=== PATIENT | male | born 1950 | race Caucasian/White ===

== ENCOUNTER → 2024-03-25 | Outpatient (CLI) | payer MEDICARE, BC, SELFPAY ==
--- NOTE | 2024-03-25 16:10 | XR_ITS ---
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 Technique: Multiple real-time grayscale transabdominal sonographic images of the abdomen have been obtained. Findings: Cholelithiasis, small stones Gallbladder wall 0.4 cm Common bile duct enlarged 0.8 cm no definite stones Pancreas poorly visualized but enlarged 5.0 cm Mid and distal aorta not enlarged Liver 15.6 cm multiple liver lesions, the largest in the left lobe 21 mm right lobe 12 mm Normal hepatopedal portal venous flow Patent IVC Right kidney 12.3 x 5.5 x 7.5 cm cortex 2.5 cm Multiple cysts, small Solid mass lower pole right kidney 3.2 x 2.6 x 3.2 cm Left kidney 14.6 x 6.9 x 5.4 cm cortex 2.2 cm Multiple cysts Moderate bilateral renal parenchymal scar formation Spleen 11.3 cm IMPRESSION: Cholelithiasis, small gallstones Thickened gallbladder wall 0.4 cm, enlarged common bile duct 0.8 cm, if biliary colic is a clinical consideration, recommend MRCP follow-up Solid mass lower pole right kidney 3.2 x 2.6 x 3.2 cm, recommend MRI abdomen kidneys follow-up, pre and postcontrast to assess this renal mass
[2024-03-25 16:15] LABS: Basophils # (Auto) 0.1 Thou/mm3 (0.0-0.2); Basophils % (Auto) 1 % (0-2.5); Eosinophils # (Auto) 0.3 Thou/mm3 (0.0-0.5); Eosinophils % (Auto) 3 % (0-10); Hematocrit 51.5 % (41.0-53.0); Hemoglobin 17.2 g/dL (13.5-16.0); Immature Granulocytes % (Auto) 1 % (0-0); Immature Granulocytes Auto 0.09 Thou/mm3 (0.00-0.00); Lymphocytes # (Auto) 1.7 Thou/mm3 (1.0-4.8); Lymphocytes % (Auto) 20 % (10-50); Mean Corpuscular HGB Conc 33.4 g/dl (31.0-37.0); Mean Corpuscular Hemoglobin 30.9 pg (25.0-35.0); Mean Corpuscular Volume 93 fL (80-100); Monocytes # (Auto) 0.4 Thou/mm3 (0.0-0.8); Monocytes % (Auto) 5 % (0-12); Neutrophils # (Auto) 5.9 Thou/mm3 (1.8-7.7); Neutrophils % (Auto) 70 % (37-80); Nucleated Red Blood Cell % 0 /100 WBC (0); Platelet Count 247 Thou/mm3 (140-440); RDW Standard Deviation 46.4 fL (35.1-43.9); Red Blood Count 5.57 Miln/mm3 (4.50-5.90); White Blood Count 8.4 Thou/mm3 (3.8-10.6)
[2024-03-25 16:29] LABS: Carbon Dioxide 25.5 mMol/L (20.0-31.0); Chloride 107 mMol/L (98-107); Potassium 4.9 mMol/L (3.4-5.1); Sodium 140 mMol/L (136-145)
[2024-03-25 16:30] LABS: Alanine Aminotransferase 65 U/L (10-49); Albumin, Serum 4.8 gm/dL (3.4-4.8); Albumin/Globulin Ratio 2.2 (1.2-2.2); Alkaline Phosphatase 109 U/L (46-116); Amylase 45 U/L (30-118); Anion Gap 8 (7-16); Aspartate Amino Transferase 34 U/L (0-34); BUN/Creatinine Ratio 22 Ratio (12-20); Bilirubin,Total 0.9 mg/dL (0.3-1.2); Blood Urea Nitrogen 26 mg/dL (9-23); Calcium 10.4 mg/dL (8.3-10.6); Calcium (Corrected) 10.4 mg/dL (8.5-10.1); Creatinine (Component) 1.2 mg/dL (0.6-1.3); Globulin 2.2 gm/dL (2.3-3.5); Glucose 124 mg/dL (74-106); Lipase 35 U/L (12-53); Osmolality,Calculated 285 (275-295); eGFR > 60 See Note
== END | disposition home or self-care (01) ==
LOC: CDIM 15:46 → COPL 15:46
PROVIDERS: PCP Family Medicine; Referring Provider Physician Assistant; Visit Provider Radiology Diagnostic Radiology
DX: K80.20 Calculus of gallbladder without cholecystitis without obstruction (principal); K82.8 Other specified diseases of gallbladder; K83.8 Other specified diseases of biliary tract; N28.89 Other specified disorders of kidney and ureter; R10.9 Unspecified abdominal pain
CPT/HCPCS: 36415; 76700; 80053; 82150; 83690; 85025

== ENCOUNTER → 2024-04-28 | Outpatient (CLI) | payer MEDICARE, BC, SELFPAY ==
--- NOTE | 2024-04-28 16:03 | XR_ITS ---
MRI abdomen, without contrast. MRCP Date and time of exam: April 28, 2024 at 1634 hours Comparison August 06, 2023 INDICATIONS: Right-sided abdominal pain beginning one month ago, abdomen sonogram March 25, 2024 cholelithiasis, gallbladder wall 0.4 cm Technique: Multiple axial and coronal images of the abdomen have been obtained with the Siemens 1.5T MRI scanner. Images obtained included T1 weighted transverse images, T2-weighted transverse images, T2-weighted transverse images fat-suppressed, T2 weighted haste fat suppressed transverse images, T1 weighted images, in and out of phase images, T2-weighted coronal images, breath hold, T2 weighted haze coronal images as well as T2 weighted coronal thick slab images, MRCP. Findings: Benign liver cysts, no intrahepatic biliary tract dilatation Multiple small gallstones Enlarged common bile duct 8 mm Numerous common hepatic common bile duct stones greater than 10 in number ranging in size from 2 to 3 mm No pancreatic edema or dilated pancreatic duct Spleen is not enlarged Solid mass lower pole right kidney 3.2 cm IMPRESSION: Cholelithiasis, negative for cholecystitis Enlarged common bile duct 8 mm with numerous small common hepatic common bile duct stone
== END | disposition home or self-care (01) ==
PROVIDERS: PCP Physician Assistant; Referring Provider Internal Medicine Gastroenterology; Visit Provider Internal Medicine Gastroenterology
DX: K80.20 Calculus of gallbladder without cholecystitis without obstruction (principal); K83.8 Other specified diseases of biliary tract
CPT/HCPCS: S8037; 74181

== ENCOUNTER 2024-04-29 20:28 | Inpatient (IN) | payer MEDICARE, BC, SELFPAY ==
[2024-04-29 20:34] VITALS: BP 114/73; PULSE 118; RESP 20; TEMP 36.6; O2SAT 98
--- NOTE | 2024-04-29 20:56 | EDNOTE_ITS ---
ED Abdominal Pain RME/HPI General Chief Complaint: Abdominal Pain Stated complaint: ABD PAIN Time seen by provider: 04/29/24 20:55 Arrival date/time: 04/29/24 20:28 Limitations: no limitations RME / HPI RME / HPI narrative: DR. THOMAS MAIN ED EVALUATION: 74-year-old male with history of high cholesterol, hypertension and gallstones presenting to the emergency department with acute onset of right upper quadrant pain that started at noon after he was eating pancakes. The patient states the pain has been constant and is a dull ache. There is no radiation. The patient states he had pain like this before and has seen Dr. Aguilera for this. He had an MRI yesterday as an outpatient and labs test today per Dr. Aguilera's office. He does not know what the plan is but he suspects that his gallbladder may have to be taken out. Positive nausea. No vomiting, no fever. Related Data Home Medications ?Medication ?Instructions ?Recorded ?Confirmed nortriptyline 50 mg capsule 2 tab PO HS 30 days #15 caps 07/07/17 08/01/23 losartan 100 mg tablet 100 mg PO QDAY 08/01/23 08/01/23 pregabalin 150 mg capsule 150 mg PO QDAY 08/01/23 08/01/23 rosuvastatin 10 mg tablet 10 mg PO QDAY 08/01/23 08/01/23 Allergies Allergy/AdvReac Type Severity Reaction Status Date / Time No Known Allergies Allergy Verified 08/01/23 08:18 Review of Systems Review of Systems Systems Reviewed: All systems reviewed, normal except as documented Narrative Review of Systems: GEN: No fever, no chills, no weight loss EYES: No discharge, no visual changes, no pain HEENT: No ear pain, no congestion, no sore throat PULM: No shortness of breath, no cough, no congestion CV: No chest pain, no dyspnea on exertion, no palpitations GI: + nausea, no vomiting, no diarrhea, + right upper quadrant pain, no constipation : No frequency, no urgency and no dysuria MUSC/SKEL: No joint pain, no back pain SKIN: No rash PSYCH: No hallucinations, no depression HEME/LYMPH: No easy bleeding or bruising tendencies NEURO: No weakness, no headache Past Medical History Past Medical History NEUROLOGIC: Positive Neurological Disorders, Peripheral Neuropathy and Migraine CARDIAC: Positive Cardiac Disorders, Coronary Artery Disease, Congenital Heart Disease and Hypertension RESPIRATORY: Positive Sleep Apnea GASTROINTESTINAL: Positive Gastrointestinal Disorders, Diverticulitis and Diverticulosis GENITOURINARY: 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 He is slightly diaphoretic in the face but otherwise not on his arms and legs. No mottling on the skin. General Limitations: Present no limitations General appearance: Present alert and in distress Head Head exam: Present atraumatic Eye Eye exam: Present normal appearance, EOMI and scleral icterus (No jaundice.) ENT ENT exam: Present normal exam, normal oropharynx and mucous membranes dry Neck Neck exam: Present normal inspection, full ROM and trachea midline Chest Chest inspection: Present normal inspection and symmetric chest wall rise Respiratory Respiratory exam: Present normal lung sounds bilaterally; Absent respiratory distress, wheezes or accessory muscle use Cardiovascular Cardiovascular exam: Present regular rate, tachycardia and normal heart sounds Abdominal Exam Abdominal exam: Present soft, guarding and normal bowel sounds; Absent distention, rebound, rigidity, Martínez's sign, Rovsing's sign, ascites or mass Extremities Exam Extremities exam: Present normal inspection and full ROM Back Exam Back exam: Present normal inspection and full ROM Neurological Exam Neurological exam: Present alert and oriented X3; Absent motor sensory deficit Psychiatric Psychiatric exam: Present normal affect and normal mood Skin Skin exam: Present warm, dry, intact and normal color Course Course Course Narrative: 0101: Sepsis alert initiated. Orders made at this time are congruent with ED Adult Sepsis Order List. Re-evaluation is to be completed. NS IVF was started at 2311. 0213: Sepsis reassessment performed consisting of lab review, vitals, physical exam including auscultation of heart, lungs, and visual evaluation of capillary refills, mucosal membranes and extremities. Patient is not hypotensive at this time. Patient rates his pain 3 out of 10 in severity. Dilaudid orderd. Attempted to call Dr. Aguilera 2-3x without any success. See [facility] for further consultations. 0600: Care signed out to Dr. Gao (emergency physician). Past medical, surgical, social and family history reviewed. Vitals and home medications reviewed. Results and treatment plan discussed. They will assume the care of the patient at this time and will follow the patient, pending callback from Dr. Curry and/or Dr. Aguilera. Quality Measures Possible source: GI tract/intra-abdominal Blood cultures ordered: yes Antibiotic ordered: Yes Pertinent labs: 04/29/24 04/30/24 23:10 00:00 Lactic Acid 1.1 mMol/L (0.4-2.0) Procalcitonin 4.07 H ng/ml (0.0-0.49) sepsis Orders Category Date Time Status COVID-19 Screening Questionnaire NOW Care 04/30/24 02:21 Active COVID-19 Screening Questionnaire NOW Care 04/30/24 02:[address] Registrar STAT Care 04/30/24 01:01 Active Continuous Pulse Oximetry STAT Care 04/30/24 01:01 Completed Decision to Admit X1 Care 04/30/24 02:21 Completed Decision to Admit X1 Care 04/30/24 02:25 Active EKG (ED ONLY) *Do not use* NOW Care 04/29/24 22:39 Completed Insert IV STAT Care 04/29/24 21:43 Active NPO STAT Care 04/29/24 21:43 Active NPO STAT Care 04/30/24 01:01 Active Strict Intake and Output Routine Care 04/30/24 01:01 Ordered EKG (ED Only) Stat Exams 04/29/24 22:38 Ordered XR chest 1V portable Stat Exams 04/30/24 00:09 Taken Blood Culture (Lab) Stat Lab 04/30/24 02:13 Received CBC Stat Lab 04/29/24 23:10 Completed Comprehensive Metabolic Panel Stat Lab 04/29/24 23:10 Completed LDH (Lactate Dehydrogenase) Stat Lab 04/30/24 00:00 Completed Lactate (Lactic Acid) Stat Lab 04/29/24 23:10 Completed Lipase Stat Lab 04/29/24 23:10 Completed Lipid Panel Stat Lab 04/30/24 00:00 Completed Magnesium Stat Lab 04/29/24 23:10 Completed Magnesium Stat Lab 04/30/24 00:00 Completed Partial Thromboplastin Time Stat Lab 04/30/24 01:01 Completed Phosphorous Stat Lab 04/30/24 00:00 Completed Procalcitonin Stat Lab 04/29/24 23:10 Completed Prothrombin Time with INR Stat Lab 04/30/24 01:01 Completed Troponin I Stat Lab 04/29/24 23:10 Completed Urinalysis Stat Lab 04/29/24 21:43 Ordered Urine Culture Stat Lab 04/30/24 01:01 Ordered HYDROmorphone INJ [Dilaudid Inj] Med 04/29/24 22:37 Discontinued 0.05 mg IVP X1 ONE HYDROmorphone INJ [Dilaudid Inj] Med 04/29/24 22:37 Discontinued 0.5 mg IVP X1 ONE HYDROmorphone INJ [Dilaudid Inj] Med 04/30/24 01:40 Discontinued 0.5 mg IVP X1 ONE Morphine Inj Med 04/29/24 21:48 Discontinued 4 mg IVP X1 ONE Morphine Inj [Morphine Sulf Inj] Med 04/29/24 21:42 Discontinued 4 mg IM X1 ONE Ondansetron Inj [Zofran Inj] Med 04/29/24 22:37 Discontinued 4 mg IV X1 ONE Ondansetron Inj [Zofran Inj] Med 04/29/24 22:38 Discontinued 4 mg IV X1 ONE Piper/Tazo 3.375 gm [Zosyn] Med 04/30/24 01:01 Discontinued 3.375 gm in 50 ml IV X1 Sodium Chloride 0.9% 1000 ml [Ns] 1,000 ml Med 04/29/24 22:37 Discontinued IV 999 mls/hr Sodium Chloride 0.9% 1000 ml [Ns] 2,466 ml Med 04/30/24 01:01 Discontinued IV 2,466 mls/hr Oxygen Delivery NOW RT 04/30/24 01:01 Active Reevaluation(s) Reevaluation #1: Patient states his pain is slightly improved compared to when he came in. Time: 22:35 Vital Signs Vital signs: Vital Signs Temperature 98 F 04/29/24 20:34 Pulse Rate 118 H 04/29/24 20:34 Respiratory Rate 20 04/29/24 20:34 Blood Pressure 114/73 04/29/24 20:34 Pulse Oximetry (%) 98 04/29/24 20:34 Oxygen Delivery Method Nasal Cannula 04/29/24 20:34 Oxygen Flow Rate 6 04/29/24 20:34 Procedures -ED Smoking Cessation Time Spent Discussing Smoking Cessation w/Patient (min): 3 Patient Acknowledges Need for Cessation: Yes Additional Comments: The patient was counseled as to the multiple risks to their health from continued use of tobacco products. It was explained that continuing to smoke may lead to multiple short and residential negative health consequences, including but not limited to mouth/esophageal/lung cancer, COPD, and heart disease. The patient states they understand these risks, and also understand the options and resources available to them to help them stop smoking. Nicotine replacement therapy, local hotlines, and local resources were discussed as viable options for helping them stop their tobacco use. The total time spent counseling the patient regarding tobacco cessation was 3 minutes. Abdominal Pain MDM MDM Narrative MDM Narrative:: 74-year-old male presenting with history of gallstones and acute pain. Heart rate is 118. Dr. Aguilera is made aware of the patient immediately upon patient arrival even before labs are sent and likely has common bile duct stone based on presentation and history. Recommends the patient get admitted and he will do ERCP. Labs are pending. Suspect different diagnosis to include, bile duct stone, acute cholecystitis, cholangitis, worsening of his underlying biliary disease, sepsis, hepatitis, nonspecific presentation of acute coronary artery disease. STEMI. Pneumonia. Sepsis alert is called secondary to elevated procalcitonin and lactate. Zosyn is ordered. Pancreatitis with evidence of gallstones -0200/0300/0400: Dr. Aguilera paged pending. 0449: Discussed with Dr. Curry regarding the hospitalist's request. States he will talk to Dr. Aguilera at 0630 and will call the next oncoming provider, Dr. Gao, regarding his discussion with Willy. I, Marizol Lopez, am scribing for and in the presence of Dr. Thomas. Patient data External records reviewed:: [facility] previous records (Reviewed colonoscopy note by Dr. Curry dated 08/06/23; Reviewed outpatient MRI from yesterday, see below.) Clinical information provided by:: patient Social determinants that could affect healthcare access:: other (specify) (C urrent smoker.) Patient has the following chronic illnesses:: High cholesterol, hypertension and gallstones. How is presenting disease/condition affected by chronic disease/condition?: exacerbated by Evaluation data The following diagnostics were reviewed and interpreted by me:: lab results, radiology exam(s) and EKG tracing(s) Lab and/or radiology exams considered but not ordered:: none Interpretation Summary: WBC count is elevated at 13.6, Total Bilirubin is elevated at 3.1, LFTs are elevated, Lipase is elevated at 3274, Lactic acid is normal, Procalcitonin is elevated at 4.07, according to my interpretation. CXR shows mild cardiomegaly, increased vascular markings bilaterally, but no pleural effusions, bony abnormalities, no CHF or infiltrates according to my interpretation. EKG done at 0544, sinus tachycardia, rate of 102, low voltage, nonspecific ST-T wave changes, no ST elevations or depressions, QTc: 387, no STEMI, according to my interpretation. ----- [facility] Report Signed Patient: CEFERINO PRESTON. Record#: [id number] Birthdate: 1950 Age/Sex: 74 / M Location: [facility] Attending Dr: Sushil Mcqueen MD Ordering Physician: Sushil Tyler MD Date of Service: 04/28/24 Procedure(s): MR MRCP Accession Number(s): [id number] cc: Sabino Silver MD; Amanda Griffith PA-C; Sushil Tyler MD~ MRI abdomen, without contrast. MRCP Date and time of exam: April 28, 2024 at 1634 hours Comparison August 06, 2023 INDICATIONS: Right-sided abdominal pain beginning one month ago, abdomen sonogram March 25, 2024 cholelithiasis, gallbladder wall 0.4 cm Technique: Multiple axial and coronal images of the abdomen have been obtained with the Siemens 1.5T MRI scanner. Images obtained included T1 weighted transverse images, T2-weighted transverse images, T2-weighted transverse images fat-suppressed, T2 weighted haste fat suppressed transverse images, T1 weighted images, in and out of phase images, T2-weighted coronal images, breath hold, T2 weighted haze coronal images as well as T2 weighted coronal thick slab images, MRCP. Findings: Benign liver cysts, no intrahepatic biliary tract dilatation Multiple small gallstones Enlarged common bile duct 8 mm Numerous common hepatic common bile duct stones greater than 10 in number ranging in size from 2 to 3 mm No pancreatic edema or dilated pancreatic duct Spleen is not enlarged Solid mass lower pole right kidney 3.2 cm IMPRESSION: Cholelithiasis, negative for cholecystitis Enlarged common bile duct 8 mm with numerous small common hepatic common bile duct stone Dictated By: Sabino Silver MD Signed By: <Electronically signed by Sabino Silver MD in OV> 04/28/24 1707 Medications / Prescriptions Medications or Prescriptions considered but not ordered:: none Medication administrations:: Medication Administration History Discontinued Medications Hydromorphone HCl (Hydromorphone Inj 2 Mg/Ml Vial) 0.5 mg IVP X1 ONE Stop: 04/29/24 22:38 Last Admin: 04/29/24 22:45 Dose: 0.5 mg Documented By: JOHNNIE Hydromorphone HCl (Hydromorphone Inj 2 Mg/Ml Vial) 0.05 mg IVP X1 ONE Stop: 04/29/24 22:38 Last Admin: 04/29/24 23:05 Dose: Not Given Documented By: JOHNNIE Non-Admin Reason: Cancelled by Provider Hydromorphone HCl (Hydromorphone Inj 2 Mg/Ml Vial) 0.5 mg IVP X1 ONE Stop: 04/30/24 01:41 Last Admin: 04/30/24 02:39 Dose: 0.5 mg Documented By: Sodium Chloride (Ns) 1,000 mls @ 999 mls/hr IV .Q1H1M ONE Stop: 04/29/24 23:37 Last Infusion: 04/30/24 01:43 Dose: Infused Documented By: Admin: 04/29/24 23:11 Dose: 999 mls/hr Documented By: Sodium Chloride (Ns) 2,466 mls @ 2,466 mls/hr 30 ml/kg infuse over 60 min (2466 ml) IV .Q1H ONE Stop: 04/30/24 02:00 Last Infusion: 04/30/24 02:43 Dose: Infused Documented By: Admin: 04/30/24 01:43 Dose: 2,466 mls/hr Documented By: Piperacillin/Tazobactam/Dextrose (Zosyn) 3.375 gm in 50 mls @ 100 mls/hr IV X1 ONE Stop: 04/30/24 01:30 Last Infusion: 04/30/24 05:28 Dose: Infused Documented By: Admin: 04/30/24 01:41 Dose: 100 mls/hr Documented By: Morphine Sulfate (Morphine Sulf Inj 4 Mg/Ml Vial) 4 mg IM X1 ONE Stop: 04/29/24 21:43 Last Admin: 04/29/24 22:44 Dose: Not Given Documented By: Non-Admin Reason: Duplicate Medication on eMAR Morphine Sulfate (Morphine Sulf Inj 10 Mg/Ml Vial) 4 mg IVP X1 ONE Stop: 04/29/24 21:49 Last Admin: 04/29/24 21:52 Dose: 4 mg Documented By: Ondansetron HCl (Ondansetron Inj 2 Mg/Ml Inj 2 Ml) 4 mg IV X1 ONE; Protocol Stop: 04/29/24 22:38 Last Admin: 04/29/24 22:46 Dose: 4 mg Documented By: Ondansetron HCl (Ondansetron Inj 2 Mg/Ml Inj 2 Ml) 4 mg IV X1 ONE; Protocol Stop: 04/29/24 22:39 see above Consultations Consultation(s) initiated? (list below): Yes Consultation #1 (Physician, Specialty, Details): Discussed case with [Dr. Aguilera] from [GI] regarding [consultation]. Discussed patients ED course, exam findings, labs, and radiology results. Agrees to do an ERCP tomorrow. Requests to admit the patient, Consultation #2 (Physician, Specialty, Details): Discussed case with [Dr. Curry] from [GI] regarding [consultation]. Discussed patients ED course, exam findings, labs, and radiology results. States that Dr. Aguilera will not be able to perform an ERCP due to the patient's lab results. Recommends admitting the patient and he will inform Dr. Aguilera of the patient's condition in the morning. Time: 02:15 Consultation #3 (Physician, Specialty, Details): Discussed case with [the resident physician, and the attending Dr. Mayer, Hospitalist service regarding admission. Discussed patients ED course, exam findings, labs, and radiology results. The Hospitalist is requesting to attempt to contact Dr. Aguilera again to see if new labs and ERCP are possible or to get the general surgeon on-board to perform a cholecystectomy. Time: 02:23 Diagnosis Differential diagnosis abdominal pain: other (bile duct stone, acute cholecystitis, cholangitis, worsening of his underlying biliary disease, sepsis, hepatitis, nonspecific presentation of acute coronary artery disease. STEMI. Pneumonia.) Most likely diagnosis given after review of the tests above:: see below Admission Indicated Admission indicated?: not indicated Admission Request Was there a request for admission?: No Disposition Plan Disposition Plan: other (specify) (Signed out to Dr. Gao at [address] Curry and/or Dr. Aguilera.) Critical Care Time Critical Care Time Critical Care Time: Yes Total Critical Care Time (min.): 35 Attestation: The high probability of sudden, clinically significant deterioration in the patient?s condition required the highest level of my preparedness to intervene urgently. The services I provided to this patient were to treat and/or prevent clinically significant deterioration. Services included the following: chart data review, reviewing nursing notes and/or old charts, documentation time, payroll consultant collaboration regarding findings and treatment options, medication orders and management, direct patient care, vital sign assessments and ordering, interpreting and reviewing diagnostic studies and lab tests. Aggregate critical care time includes only time during which I was engaged in work directly related to the patient?s care, as described above, whether at bedside or elsewhere in the Emergency Department. It did not include time spent performing other reported procedures or the services of residents, students, nurses or physician assistants. Discharge Plan Plan Disposition Comment: Stable at signout Patient condition on transfer: Stable Prescriptions/Referrals Prescriptions/Med Rec: No Action nortriptyline 50 mg capsule 2 tab PO HS 30 Days Qty: 15 Patient Comments: losartan 100 mg tablet 100 mg PO QDAY Patient Comments: TAKE 1 TABLET BY MOUTH EVERY DAY rosuvastatin 10 mg tablet 10 mg PO QDAY Patient Comments: TAKE 1 TABLET BY MOUTH EVERY DAY FOR 30 DAYS pregabalin 150 mg capsule 150 mg PO QDAY Patient Comments: TAKE 1 CAPSULE BY MOUTH EVERY DAY FOR 30 DAYS Problem List Clinical Impression: Biliary calculi, common bile duct, Acute gallstone pancreatitis Patient/Caregiver Discharge Instructions Print Language: Luxembourger Stand Alone Forms: Janice Award Info., Patient Portal Info Letter
[2024-04-29 21:04] VITALS: BMI 42.3
[2024-04-29] MEDS: MORPHINE SULF INJ 10 MG/ML VIAL 4 MG IVP (21:52)
[2024-04-29 22:34] VITALS: BP 114/73; PULSE 107; RESP 18; TEMP 36.6; O2SAT 94
[2024-04-29] MEDS: HYDROmorphone INJ 2 MG/ML VIAL 0.5 MG IVP (22:45)
[2024-04-29] MEDS: ONDANSETRON INJ 2 MG/ML INJ 2 ML 4 MG IV (22:46)
[2024-04-29] MEDS: SODIUM CHLORIDE 0.9% 1000 ML 1,000 ML 999 ML IV (23:11)
[2024-04-29 23:55] LABS: Basophils % (Auto) 0 % (0-2.5); Eosinophils # (Auto) 0.1 Thou/mm3 (0.0-0.5); Eosinophils % (Auto) 0 % (0-10); Hematocrit 46.2 % (41.0-53.0); Hemoglobin 15.8 g/dL (13.5-16.0); Immature Granulocytes % (Auto) 1 % (0-0); Immature Granulocytes Auto 0.07 Thou/mm3 (0.00-0.00); Lymphocytes # (Auto) 0.4 Thou/mm3 (1.0-4.8); Lymphocytes % (Auto) 3 % (10-50); Mean Corpuscular HGB Conc 34.2 g/dl (31.0-37.0); Mean Corpuscular Volume 91 fL (80-100); Monocytes % (Auto) 7 % (0-12); Neutrophils % (Auto) 89 % (37-80); Nucleated Red Blood Cell % 0 /100 WBC (0); Platelet Count 241 Thou/mm3 (140-440); RDW Standard Deviation 46.9 fL (35.1-43.9); Red Blood Count 5.09 Miln/mm3 (4.50-5.90); White Blood Count 13.6 Thou/mm3 (3.8-10.6)
[2024-04-30] VITALS (8 sets, daily range): BP systolic 114–161; BP diastolic 74–97; PULSE 69–86; RESP 16–20; TEMP 36.3–36.7; O2SAT 92–99; BMI 43.2
--- NOTE | 2024-04-30 00:09 | XR_ITS ---
Examination: AP chest single view TECHNIQUE: AP portable upright chest single view Exam date and time: April 30, 2024 12:16 AM Comparison May 29, 2016 INDICATIONS: Right upper abdominal pain today hypertension history FINDINGS: Normal heart size Mild accentuation basilar bronchovascular markings No lobar pneumonia or pulmonary edema IMPRESSION: Basilar bronchitis pattern
[2024-04-30 00:20] LABS: Lactate (Lactic Acid) 1.1 mMol/L (0.4-2.0)
[2024-04-30 00:34] LABS: Alanine Aminotransferase 370 U/L (10-49); Albumin, Serum 4.4 gm/dL (3.4-4.8); Alkaline Phosphatase 370 U/L (46-116); Anion Gap 11 (7-16); Aspartate Amino Transferase 291 U/L (0-34); BUN/Creatinine Ratio 14 Ratio (12-20); Bilirubin,Total 3.1 mg/dL (0.3-1.2); Blood Urea Nitrogen 14 mg/dL (9-23); Calcium 9.3 mg/dL (8.3-10.6); Calcium (Corrected) 9.3 mg/dL (8.5-10.1); Chloride 105 mMol/L (98-107); Estimated Creatinine Clearance 100.1 mL/min (>60); Globulin 2.2 gm/dL (2.3-3.5); Glucose 136 mg/dL (74-106); Lipase 3274 U/L (12-53); Magnesium 1.7 mg/dL (1.6-2.6); Osmolality,Calculated 276 (275-295); Potassium 3.7 mMol/L (3.4-5.1); Procalcitonin 4.07 ng/ml (0.0-0.49); Sodium 137 mMol/L (136-145); Total Protein 6.6 gm/dL (5.7-8.2); Troponin I < 0.020 ng/mL (0.0-0.045); eGFR > 60 See Note
[2024-04-30 01:30] LABS: INR 1.2 (0.9-1.3); Partial Thromboplastin Time 27.2 Seconds (22.0-36.0); Prothrombin Time 12.7 Seconds (9.0-12.2)
[2024-04-30 01:33] LABS: Cardiac Risk Estimate 2.5 RATIO (4.0-6.7); Cholesterol 109 mg/dL (132-200); HDL Cholesterol 44 mg/dL (40-60); LDH (Lactate Dehydrogenase) 360 U/L (120-246); LDL Cholesterol,Calculated 50 mg/dL (0-130); Magnesium 1.7 mg/dL (1.6-2.6); Phosphorous 2.5 mg/dL (2.4-5.1); Triglycerides 76 mg/dL (30-150)
[2024-04-30] MEDS: PIPER/TAZO 3.375 GM 3.375 GM/50 ML BAG IV (01:41)
[2024-04-30] MEDS: SODIUM CHLORIDE 0.9% 1000 ML 2,466 ML 2466 ML IV (01:43)
[2024-04-30] MEDS: HYDROmorphone INJ 2 MG/ML VIAL 0.5 MG IVP (02:39)
--- NOTE | 2024-04-30 04:16 | EVENTNT_ITS ---
Documentation for date of: 04/30/24 Event Note Event Note: The patient is a 74-year-old male with a past medical history of hypertension, hyperlipidemia, gallstones, colovesicular fistula and right renal mass status post cryoablation who presented to the ED on 04/29/2024 with right upper quadrant pain started about 10 a.m and has been constant since with no radiation, associated nausea but no vomiting. The patient was seen by Dr. Aguilera as an outpatient yesterday and had an MRI. In the ED, GI Dr. Aguilera was consulted who recommended for the patient to be admitted with IV fluid hydration and plan for an ERCP in the morning. However repeat labs showed elevated lipase of 3274. Hospitalist team was called for admission of patient for management of gallstone pancreatitis. We recommended for GI ERCP technical marketing consultant Dr Aguilera to be contacted again following new labs and if accepts, the patient will be admitted. Otherwise, general surgery consultation will be obtained, but if no procedures will be done here, then recommend for the patient to be transferred out to another facility. Case was discussed with attending physician, Dr Moreno Abel MD PGY-1 Face to face evaluation was performed by me. I have personally seen and examined the patient. I discussed the assessment and plan with the entire medicine team. I reviewed available medical records, imaging studies, laboratory results. I agree with the above subjective data, objective findings, assessment and plan e xcept as corrected by me or noted below Discussed with Dr Thomas ED attending. Expressed my concerns regrading possibility of adverse outcome if intervention is delayed or not done. We are not accepting the patient as of now. GI Dr. Cardona to be contacted again after repeat results and events. Patient became septic with elevated lactate level, started on broad spectrum Abxs Zosyn. If urgent ERCP not able to be done here then General Surgery to be consulted for surgical exploration (this is usually rarely needed but maybe required for large or impacted stones). If no surgery to be offered/needed by surgery then patient I believe should be transferred to another facility where ERCP and/or at least PTC (Percutaneous transhepatic cholangiography) by IR can be performed. Ultimately will need gall bladder to come out as well per surgery. Recommend to trend liver enzymes, lactate, provide with appropriate fluid resuscitation. continue broad spectrum antibiotics meanwhile
--- NOTE | 2024-04-30 08:23 | PD.EDABDPN ---
ED Abdominal Pain RME/HPI General Chief Complaint: Abdominal Pain Stated complaint: ABD PAIN Time seen by provider: 04/29/24 20:55 Arrival date/time: 04/29/24 20:28 Limitations: no limitations RME / HPI RME / HPI narrative: DR. HERNANDEZ MAIN ED EVALUATION: 74-year-old male with history of high cholesterol, hypertension and gallstones presenting to the emergency department with acute onset of right upper quadrant pain that started at noon after he was eating pancakes. The patient states the pain has been constant and is a dull ache. There is no radiation. The patient states he had pain like this before and has seen Dr. Aguilera for this. He had an MRI yesterday as an outpatient and labs test today per Dr. Aguilera's office. He does not know what the plan is but he suspects that his gallbladder may have to be taken out. Positive nausea. No vomiting, no fever. [address] Aguilera (GI hot room attendant). We discussed the patient's case in detail. He said the patient should be admitted to the hospitalist and he will see him today. I discussed with Dr. Aguilera the fact that the hospitalist was reluctant to admit the patient overnight. He asked that the hospitalist call him and speak with him directly. I then called and spoke with Dr. Escalona (hospitalist on duty). I let him know that Dr. Aguilera wanted him to call and he said he will call right now and let me know about the conversation and whether they can admit the patient. [address] Lewis for Dr. Escalona. We discussed patient's case in detail. She kindly agreed to admit the patient. Related Data Home Medications ?Medication ?Instructions ?Recorded ?Confirmed nortriptyline 50 mg capsule 2 tab PO HS 30 days #15 caps 07/07/17 08/01/23 losartan 100 mg tablet 100 mg PO QDAY 08/01/23 08/01/23 pregabalin 150 mg capsule 150 mg PO QDAY 08/01/23 08/01/23 rosuvastatin 10 mg tablet 10 mg PO QDAY 08/01/23 08/01/23 Allergies Allergy/AdvReac Type Severity Reaction Status Date / Time No Known Allergies Allergy Verified 08/01/23 08:18 ED Exam General Limitations: Present no limitations General appearance: Present alert and in distress Course Course Course Narrative: 0101: Sepsis alert initiated. Orders made at this time are congruent with ED Adult Sepsis Order List. Re-evaluation is to be completed. NS IVF was started at 2311. 0213: Sepsis reassessment performed consisting of lab review, vitals, physical exam including auscultation of heart, lungs, and visual evaluation of capillary refills, mucosal membranes and extremities. Patient is not hypotensive at this time. Patient rates his pain 3 out of 10 in severity. Dipesh orderd. Attempted to call Dr. Aguilera 2-3x without any success. See [facility] for further consultations. 0600: Care signed out to Dr. Gao (emergency physician). Past medical, surgical, social and family history reviewed. Vitals and home medications reviewed. Results and treatment plan discussed. They will assume the care of the patient at this time and will follow the patient, pending callback from Dr. Curry and/or Dr. Aguilera. Orders Category Date Time Status COVID-19 Screening Questionnaire NOW Care 04/30/24 02:21 Active COVID-19 Screening Questionnaire NOW Care 04/30/24 02:25 Active Fruit And Vegetable Classer STAT Care 04/30/24 01:01 Active Continuous Pulse Oximetry STAT Care 04/30/24 01:01 Completed Decision to Admit X1 Care 04/30/24 02:21 Completed Decision to Admit X1 Care 04/30/24 02:25 Completed EKG (ED ONLY) *Do not use* NOW Care 04/29/24 22:39 Completed Insert IV STAT Care 04/29/24 21:43 Active NPO STAT Care 04/29/24 21:43 Active NPO STAT Care 04/30/24 01:01 Active Strict Intake and Output Routine Care 04/30/24 01:01 Ordered EKG (ED Only) Stat Exams 04/29/24 22:38 Ordered XR chest 1V portable Stat Exams 04/30/24 00:09 Taken Blood Culture (Lab) Stat Lab 04/30/24 02:13 Received CBC Stat Lab 04/29/24 23:10 Completed Comprehensive Metabolic Panel Stat Lab 04/29/24 23:10 Completed LDH (Lactate Dehydrogenase) Stat Lab 04/30/24 00:00 Completed Lactate (Lactic Acid) Stat Lab 04/29/24 23:10 Completed Lipase Stat Lab 04/29/24 23:10 Completed Lipid Panel Stat Lab 04/30/24 00:00 Completed Magnesium Stat Lab 04/29/24 23:10 Completed Magnesium Stat Lab 04/30/24 00:00 Completed Partial Thromboplastin Time Stat Lab 04/30/24 01:01 Completed Phosphorous Stat Lab 04/30/24 00:00 Completed Procalcitonin Stat Lab 04/29/24 23:10 Completed Procalcitonin Stat Lab 04/30/24 08:29 Ordered Prothrombin Time with INR Stat Lab 04/30/24 01:01 Completed Troponin I Stat Lab 04/29/24 23:10 Completed Urinalysis Stat Lab 04/29/24 21:43 Ordered Urine Culture Stat Lab 04/30/24 01:01 Ordered HYDROmorphone INJ [Dilaudid Inj] Med 04/29/24 22:37 Discontinued 0.05 mg IVP X1 ONE HYDROmorphone INJ [Dilaudid Inj] Med 04/29/24 22:37 Discontinued 0.5 mg IVP X1 ONE HYDROmorphone INJ [Dilaudid Inj] Med 04/30/24 01:40 Discontinued 0.5 mg IVP X1 ONE Morphine Inj Med 04/29/24 21:48 Discontinued 4 mg IVP X1 ONE Morphine Inj [Morphine Sulf Inj] Med 04/29/24 21:42 Discontinued 4 mg IM X1 ONE Ondansetron Inj [Zofran Inj] Med 04/29/24 22:37 Discontinued 4 mg IV X1 ONE Ondansetron Inj [Zofran Inj] Med 04/29/24 22:38 Discontinued 4 mg IV X1 ONE Piper/Tazo 3.375 gm [Zosyn] Med 04/30/24 01:01 Discontinued 3.375 gm in 50 ml IV X1 Sodium Chloride 0.9% 1000 ml [Ns] 1,000 ml Med 04/29/24 22:37 Discontinued IV 999 mls/hr Sodium Chloride 0.9% 1000 ml [Ns] 2,466 ml Med 04/30/24 01:01 Discontinued IV 2,466 mls/hr Oxygen Delivery NOW RT 04/30/24 01:01 Active Vital Signs Vital signs: Vital Signs Temperature 98 F 04/29/24 20:34 Pulse Rate 118 H 04/29/24 20:34 Respiratory Rate 20 04/29/24 20:34 Blood Pressure 114/73 04/29/24 20:34 Pulse Oximetry (%) 98 04/29/24 20:34 Oxygen Delivery Method Nasal Cannula 04/29/24 20:34 Oxygen Flow Rate 6 04/29/24 20:34 Abdominal Pain MDM Medications / Prescriptions Medication administrations:: Medication Administration History Discontinued Medications Hydromorphone HCl (Hydromorphone Inj 2 Mg/Ml Vial) 0.5 mg IVP X1 ONE Stop: 04/29/24 22:38 Last Admin: 04/29/24 22:45 Dose: 0.5 mg Documented By: Hydromorphone HCl (Hydromorphone Inj 2 Mg/Ml Vial) 0.05 mg IVP X1 ONE Stop: 04/29/24 22:38 Last Admin: 04/29/24 23:05 Dose: Not Given Documented By: Non-Admin Reason: Cancelled by Provider Hydromorphone HCl (Hydromorphone Inj 2 Mg/Ml Vial) 0.5 mg IVP X1 ONE Stop: 04/30/24 01:41 Last Admin: 04/30/24 02:39 Dose: 0.5 mg Documented By: Sodium Chloride (Ns) 1,000 mls @ 999 mls/hr IV .Q1H1M ONE Stop: 04/29/24 23:37 Last Infusion: 04/30/24 01:43 Dose: Infused Documented By: Admin: 04/29/24 23:11 Dose: 999 mls/hr Documented By: Sodium Chloride (Ns) 2,466 mls @ 2,466 mls/hr 30 ml/kg infuse over 60 min (2466 ml) IV .Q1H ONE Stop: 04/30/24 02:00 Last Infusion: 04/30/24 02:43 Dose: Infused Documented By: Admin: 04/30/24 01:43 Dose: 2,466 mls/hr Documented By: Piperacillin/Tazobactam/Dextrose (Zosyn) 3.375 gm in 50 mls @ 100 mls/hr IV X1 ONE Stop: 04/30/24 01:30 Last Infusion: 04/30/24 05:28 Dose: Infused Documented By: Admin: 04/30/24 01:41 Dose: 100 mls/hr Documented By: Morphine Sulfate (Morphine Sulf Inj 4 Mg/Ml Vial) 4 mg IM X1 ONE Stop: 04/29/24 21:43 Last Admin: 04/29/24 22:44 Dose: Not Given Documented By: Non-Admin Reason: Duplicate Medication on eMAR Morphine Sulfate (Morphine Sulf Inj 10 Mg/Ml Vial) 4 mg IVP X1 ONE Stop: 04/29/24 21:49 Last Admin: 04/29/24 21:52 Dose: 4 mg Documented By: RH Ondansetron HCl (Ondansetron Inj 2 Mg/Ml Inj 2 Ml) 4 mg IV X1 ONE; Protocol Stop: 04/29/24 22:38 Last Admin: 04/29/24 22:46 Dose: 4 mg Documented By: RH Ondansetron HCl (Ondansetron Inj 2 Mg/Ml Inj 2 Ml) 4 mg IV X1 ONE; Protocol Stop: 04/29/24 22:39 Discharge Plan Plan Disposition Comment: Stable at signout Patient condition on transfer: Stable Prescriptions/Referrals Prescriptions/Med Rec: No Action nortriptyline 50 mg capsule 2 tab PO HS 30 Days Qty: 15 Patient Comments: losartan 100 mg tablet 100 mg PO QDAY Patient Comments: TAKE 1 TABLET BY MOUTH EVERY DAY rosuvastatin 10 mg tablet 10 mg PO QDAY Patient Comments: TAKE 1 TABLET BY MOUTH EVERY DAY FOR 30 DAYS pregabalin 150 mg capsule 150 mg PO QDAY Patient Comments: TAKE 1 CAPSULE BY MOUTH EVERY DAY FOR 30 DAYS Problem List Clinical Impression: Biliary calculi, common bile duct, Acute gallstone pancreatitis Patient/Caregiver Discharge Instructions Print Language: Hebrew Stand Alone Forms: Janice Award Info., Patient Portal Info Letter
--- NOTE | 2024-04-30 08:25 | PC.NURSE ---
In to assess pt. Pt is resting quietly at this time with c/o RUQ abd pain. Pt denies any other symptoms at this time. Orders received and initiated. Call light is within reach. Pt reminded of need for urine sample, states he has no urge at this time. Plan of care ongoing.
--- NOTE | 2024-04-30 08:59 | PC.CC ---
The patient is a 74 year-old male who was BIBA from home for abdominal pain. LEILAWOlivia made csoj-ao-pein contact with patient. ASW introduced self, role, and reason for visit. Patient appeared alert and oriented to self, location, and situation. Patient was pleasant and engaged in initial assessment. Patient confirmed information on demographics and reports to living at home with his , Diana Gambino . Per patient, prior to being admitted to this hospital he was able to complete his own ADLs but uses two hiking sticks to assist with ambulation. The patient uses a C-PAP machine at home at night to sleep. While here at the hospital he has been on 5 liters of oxygen but does not use oxygen at home. Patient receives primary care with Dr. Coles and uses [facility] for prescription medication. Per the patient, his medical decision maker should something happen to him would be his Diana. Upon discharge the patient plans to return home. business services director to follow-up with any discharge needs.
[2024-04-30] MEDS: PIPER/TAZO INJ 3.375 GM in SODIUM CHLORIDE 0.9% (P) 50 ML IV ×3 (09:22→21:23)
[2024-04-30] MEDS: SODIUM CHLORIDE 0.9% 1000 ML 1,000 ML 150 ML IV ×2 (09:27→18:10)
[2024-04-30] MEDS: traMADol HCL 50 MG TABLET 100 MG PO (09:29)
[2024-04-30] MEDS: PANTOPRAZOLE INJ 40 MG VIAL IVP (09:32)
[2024-04-30 10:01] LABS: Procalcitonin 11.96 ng/ml (0.0-0.49)
--- NOTE | 2024-04-30 10:48 | EDNOTE_ITS ---
Emergency Room Addendum Addendum Narrative: 0600: Care assumed from Dr. Thomas, the previous shift emergency physician. Past medical, surgical, social and family history reviewed. Vitals and home medications reviewed. I will assume the care of the patient at this time, pending consultation with GI Dr. Aguilera. Please refer to the emergency department record for history and examination from initial visit.? Nursing notes reviewed by me. Vital signs reviewed by me. [facility] medical records reviewed by me. 0820 : I spoke with Dr. Aguilera (GI slitter and cutter operator). We discussed the patient's case in detail. He said the patient should be admitted to the hospitalist and he will see him today. I discussed with Dr. Aguilera the fact that the hospitalist was reluctant to admit the patient overnight. He asked that the hospitalist call him and speak with him directly. 0822: I spoke with hospitalist Dr. Escalona. I let him know that Dr. Aguilera wanted him to call and he said he will call right now and let me know about the conversation and whether they can admit the patient. 0835: I spoke with resident Dr. Lewis working with Dr. Escalona. We discussed patient's case in detail. She kindly agreed to admit the patient.
--- NOTE | 2024-04-30 11:21 | ESHP_ITS ---
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 Patient was diagnosed to have gallbladder stones a year ago but as the patient is symptomatic no procedures done at the time and recently patient started to have right upper quadrant abdominal pain for which he was following the primary care provider and later referred to Dr. Aguilera. Consulted Dr. Aguilera 2 weeks ago and underwent MRI and blood work. Patient was apparently normal 1 day ago. Patient was doing his routine activities getting ready to work and noticed right upper quadrant abdominal pain, became progressively severe and patient took 3 doses of ibuprofen which she used to take for peripheral neuropathy but the pain is persistent and is not relieved even with the medication. Pain is associated with nausea. Denies fever, vomitings, diarrhea, shortness of breath, abdominal distention. Patient had previous episodes of similar pain but of lesser duration so patient got anxious and came to the ED. ED Course: -Initial vitals were blood pressure 114/73 mmHg, pulse rate 118 bpm, respiratory rate 20/min, temperature 98 ?F, SpO2 98% with room air -Labs significant for WBC 13.6, Hb 15.8, platelets 241, INR 1.2, sodium 137, potassium 3.7, bicarb 21, BUN 14, creatinine 1, total bilirubin 3.1, AST 291, ALT 370, ALP 370, LDH 360, lipase 3274, procalcitonin 11.96. MRCP done on 04/28/2024 showed cholelithiasis with enlarged CBD with multiple gallstones. -In the ED, patient was given morphine, normal saline, Zosyn -Patient was admitted for acute pancreatitis secondary to choledocholithiasis. Past medical history: Hypertension, peripheral neuropathy, hyperlipidemia, diverticulitis, CAD, hemorrhoids, cholelithiasis. Past surgical history: CAD s/p PCI, 2 spinal surgeries, tumor in right kidney status post cryoablation Social history: Cannabis smoking, 3 cigarettes/week, 2 cocktails 5 days in a week, denies other illicit drug abuse. Family history: Ovarian tumor in his mother but mother is still alive not on any chemo or radiation. Father due to heart disease Review of Systems Constitutional Comments: Constitutional: No Weight Change, No Fever, No Chills, No Night Sweats, No Fatigue, No Malaise ENT/Mouth: No Hearing Changes, No Ear Pain, No Nasal Congestion, No Sinus Pain, No Hoarseness, No sore throat, No Rhinorrhea, No Swallowing Difficulty Eyes: No Eye Pain, No Swelling, No Redness, No Foreign Body, No Discharge, No Vision Changes Cardiovascular: No Chest Pain, No SOB, No PND, No Dyspnea on Exertion, No Orthopnea, No Edema, No Palpitations Respiratory: No Cough, No Sputum, No Wheezing, No Dyspnea Gastrointestinal: Nausea, No Vomiting, No Diarrhea, No Constipation, right upper quadrant pain, No Heartburn, No Anorexia, No Dysphagia, No Hematochezia, No Melena, No Flatulence, No Jaundice Genitourinary: No Dysuria, No Urinary Frequency, No Hematuria, No Urinary Incontinence, No Urgency, No Flank Pain, No Urinary Flow Changes, No Hesitancy Musculoskeletal: No Arthralgias, No Myalgias, No Joint Swelling, No Joint Stiffness, No Back Pain, No Neck Pain, No Injury History Skin: No Skin Lesions, No Pruritis Neuro: No Weakness, No Numbness, No Paresthesias, No Loss of Consciousness, No Syncope, No Dizziness, No Headache, No Coordination Changes, No Recent Falls Exam Vital Signs Temp Pulse Resp BP Pulse Ox O2 Del Method O2 Flow Rate 97.6 F 76 20 143/89 H 95 Room Air 5 04/30/24 11:15 04/30/24 11:15 04/30/24 11:15 04/30/24 11:15 04/30/24 11:15 04/30/24 11:15 04/30/24 11:15 Narrative Exam General: Awake and in no acute distress. HEENT: Normocephalic, atraumatic, mucous membranes moist. Heart: Regular rate and rhythm, no murmurs. Lungs: Clear to auscultation with no wheezing or crackles. Abdomen: Soft, nondistended, moderate tenderness in the right upper quadrant, positive bowel sounds. ?No guarding or rebound tenderness. Neurologic: Alert and oriented x3, no gross neurological deficit, and patient able to move all 4 extremities. Extremities: No edema. Skin: No rash or ecchymoses. Results: Labs 05/01/24 08:21 05/01/24 08:21 Labs: Short CBC 04/29/24 Range/Units 23:10 WBC 13.6 H D (3.8-10.6) Thou/mm3 Hgb 15.8 (13.5-16.0) g/dL Hct 46.2 (41.0-53.0) % Plt Count 241 (140-440) Thou/mm3 BMP 04/29/24 23:10 Sodium 137 Potassium 3.7 D Chloride 105 Carbon Dioxide 21.0 BUN 14 Creatinine 1.0 Glucose 136 H Calcium 9.3 Cardiac Enzymes 04/29/24 Range/Units 23:10 Troponin I < 0.020 (0.0-0.045) ng/mL Liver Function 04/29/24 Range/Units 23:10 Total Bilirubin 3.1 H D (0.3-1.2) mg/dL AST 291 H (0-34) U/L ALT 370 H (10-49) U/L Alkaline Phosphatase 370 H D (46-116) U/L Albumin 4.4 (3.4-4.8) gm/dL Quality Measures Quality Measures sepsis Current suspected stage: ruled out Possible source: GI tract/intra- abdominal Blood cultures ordered: yes Antibiotic ordered: Yes Advance care planning discussed with:: patient Medications Home Medications and Allergies Home Medications ?Medication ?Instructions ?Recorded ?Confirmed ?Type nortriptyline 50 mg capsule 2 tab PO HS 30 days #15 caps 07/07/17 04/30/24 History losartan 100 mg tablet 100 mg PO QDAY 08/01/23 04/30/24 History rosuvastatin 10 mg tablet 10 mg PO QDAY 08/01/23 04/30/24 History Allergies Allergy/AdvReac Type Severity Reaction Status Date / Time No Known Allergies Allergy Verified 08/01/23 08:18 Visit Medications Sodium Chloride (Ns) 1,000 mls @ 150 mls/hr IV .Q6H40M PERCY Stop: 04/30/24 15:22 Last Admin: 04/30/24 09:27 Dose: 150 mls/hr Piperacillin Sod/Tazobactam (Sod 3.375 gm/ Sodium Chloride) 50 mls @ 12.5 mls/hr IV Q8HR PERCY; Protocol Stop: 05/07/24 08:43 Last Admin: 04/30/24 09:22 Dose: 12.5 mls/hr Ondansetron HCl (Ondansetron Inj 2 Mg/Ml Inj 2 Ml) 4 mg IV PRN PRN; Protocol PRN Reason: NAUSEA Stop: 05/30/24 08:44 Pantoprazole Sodium (Pantoprazole Inj 40 Mg Vial) 40 mg IVP QDAY PERCY Stop: 05/30/24 08:59 Last Admin: 04/30/24 09:32 Dose: 40 mg Prochlorperazine Edisylate (Prochlorperazine Inj 5 Mg/Ml Vial 2 Ml) 10 mg IV Q6HR PRN PRN Reason: NAUSEA OR VOMITING Stop: 05/30/24 08:47 Tramadol HCl (Tramadol Hcl 50 Mg Tablet) 100 mg PO Q6HR PRN PRN Reason: Pain 4-10 Stop: 05/05/24 08:45 Last Admin: 04/30/24 09:29 Dose: 100 mg Discontinued Medications Hydromorphone HCl (Hydromorphone Inj 2 Mg/Ml Vial) 0.5 mg IVP X1 ONE Stop: 04/29/24 22:38 Last Admin: 04/29/24 22:45 Dose: 0.5 mg Hydromorphone HCl (Hydromorphone Inj 2 Mg/Ml Vial) 0.05 mg IVP X1 ONE Stop: 04/29/24 22:38 Last Admin: 04/29/24 23:05 Dose: Not Given Hydromorphone HCl (Hydromorphone Inj 2 Mg/Ml Vial) 0.5 mg IVP X1 ONE Stop: 04/30/24 01:41 Last Admin: 04/30/24 02:39 Dose: 0.5 mg Sodium Chloride (Ns) 1,000 mls @ 999 mls/hr IV .Q1H1M ONE Stop: 04/29/24 23:37 Last Infusion: 04/30/24 01:43 Dose: Infused Sodium Chloride (Ns) 2,466 mls @ 2,466 mls/hr 30 ml/kg infuse over 60 min (2466 ml) IV .Q1H ONE Stop: 04/30/24 02:00 Last Infusion: 04/30/24 02:43 Dose: Infused Piperacillin/Tazobactam/Dextrose (Zosyn) 3.375 gm in 50 mls @ 100 mls/hr IV X1 ONE Stop: 04/30/24 01:30 Last Infusion: 04/30/24 05:28 Dose: Infused Morphine Sulfate (Morphine Sulf Inj 4 Mg/Ml Vial) 4 mg IM X1 ONE Stop: 04/29/24 21:43 Last Admin: 04/29/24 22:44 Dose: Not Given Morphine Sulfate (Morphine Sulf Inj 10 Mg/Ml Vial) 4 mg IVP X1 ONE Stop: 04/29/24 21:49 Last Admin: 04/29/24 21:52 Dose: 4 mg Ondansetron HCl (Ondansetron Inj 2 Mg/Ml Inj 2 Ml) 4 mg IV X1 ONE; Protocol Stop: 04/29/24 22:38 Last Admin: 04/29/24 22:46 Dose: 4 mg Ondansetron HCl (Ondansetron Inj 2 Mg/Ml Inj 2 Ml) 4 mg IV X1 ONE; Protocol Stop: 04/29/24 22:39 Assessment & Plan Plan 74-year-old male with past medical history of hypertension, peripheral neuropathy, hyperlipidemia, diverticulitis, colovesicular fistula, CAD s/p PCI in 1995, 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 #Acute pancreatitis #2/2 CBD gall stone obstruction -patient had a history of gall bladder stone 1 year ago, as he is asymptomatic at that time no surgical intervention was done at that time. -Recently patient started to have pain abdomen over the last few months -He is following with PCP for the pain and was referred to Dr. Aguilera for further intervention -He underwent MRI abdomen and blood work recently -On 04/29, patient had severe persistent pain which was not relieved with 3 doses of ibuprofen -on examination, there is right upper quadrant and epigastric tenderness on palpation. -Labs showed elevated WBC, TBIL 3.1, AST 291,ALT 370, Lipase 3274, procal 3274 -MRCP showed cholelithiasis and dilated CBD with multiple gall stones. -In the ED, patient received fluids, pain medication and zosyn Plan - was consulted and recommended no ERCP as the patient is having acute pancreatitis -Dr. Rodarte was consulted and will appreciate his recommendations. -started maintenance IV fluids at 150ml/hr -pain medications PRN - meperidine -NPO except for ice chips and medications #Leukocytosis, likely reactive -WBC on 04/29/2024 is 13.6 -likely reactive in the setting of onging Acute pancreatitis -Monitor CBC #History of Hypertension -On losartan 100mg p.o. qday athome -Blood pressure is within normal limits during the hospital stay Plan -will resume medications based on his blood pressure. #H/O Peripheral neuropathy -on Nortriptyline 50mg HS qday #H/O Hyperlipidemia -will hold statin for now. Hospital Maintenance: Dispo: medsurg DVT ppx: SCD GI ppx: Protonix Diet;NPO except ice chips and meds IV lines: Peripheral Code status: DNR/DNI Patient plan of care was discussed with the attending physician, Dr. Escalona and senior resident Dr. Paul Velasquez, PGY1 Attending Provider Attestation/Addendum I reviewed labs, imaging, EKG, home medications and prior available records. Face to face evaluation was performed by me. I have personally examined the patient and discussed assessment and plan with the IM team. I reviewed the resident note and agree with the plan with exceptions as below. Choledocholithiasis: Without cholangitis. Consulted GI: Recommended IV hydration, IV Zosyn, management of pain, and close monitoring for any signs of cholangitis. Trend LFTs. Possible ERCP once pancreatitis improves. Will follow the patient. Acute pancreatitis: In the setting of cholelithiasis. Started IV hydration. Management of pain/nausea as needed. Started clear liquid diet. GI is following. Cholelithiasis: Complicated with pancreatitis. No evidence of cholecystitis. Consulted surgery for possible cholecystectomy.
[2024-04-30] MEDS: MEPERIDINE INJ 50 MG/ML VIAL IVP ×3 (12:19→23:51)
[2024-04-30 15:54] LABS: Collection Type, Urine Voided
[2024-04-30 16:03] LABS: Bilirubin,Urine Negative (Negative); Blood,Urine Negative (Negative); Clarity,Urine Clear (Clear/Hazy); Color,Urine Yellow (Lt Yel-Yel); Glucose, Urine Negative (Negative); Ketones,Urine Negative (Negative); Leukocyte Esterase,Urine Negative (Negative); Nitrite,Urine Negative (Negative); PH,Urine 6.5 (5.0-7.0); Protein,Urine Trace (Neg - Trace); RBC,Urine 2 /hpf (0-3); Specific Gravity,Urine 1.023 (1.001-1.035); Squamous Epithelial Cell,Urine < 1 /hpf (0-5); WBC,Urine 1 /hpf (0-5)
--- NOTE | 2024-04-30 17:55 | PD.SURCONS ---
HPI Consult details Consult date: 04/30/24 Reason for consultation narrative: Gallstone pancreatitis History of present illness: 74-year-old obese male has had over a year history of gallstones. He has had intermittent abdominal pain. Over the past few days his pain has become persistent and progressively worse. His pain is localized in right upper quadrant, radiating to his back. He has had nausea but denies vomiting, jaundice, fever, chills or discoloration of urine or stool. He was noted to have elevation of liver and pancreatic enzymes. Ultrasound showed multiple gallstones. MRCP revealed gallstones, dilated CBD and numerous stones. Review of Systems Constitutional Constitutional: Denies chills and Denies fever(s) Cardiovascular Cardiovascular: Denies chest pain Respiratory Respiratory: Denies cough Gastrointestinal Gastrointestinal: Reports abdominal pain, Reports nausea and Denies vomiting Hematologic/Lymphatic Hematologic/Lymphatic: Denies easy bleeding and Denies easy bruising Past Medical History Surgical History OTHER SURGICAL HX: Multiple back surgeries, cardiac cath with stent placement, cryoablation of kidney tumor Social History SMOKING STATUS: Current some day smoker (Smokes cigars) SUBSTANCE USE: does not use ALCOHOL: Current Meds Home Medications and Allergies Home Medications ?Medication ?Instructions ?Recorded ?Confirmed ?Type nortriptyline 50 mg capsule 2 tab PO HS 30 days #15 caps 07/07/17 04/30/24 History losartan 100 mg tablet 100 mg PO QDAY 08/01/23 04/30/24 History rosuvastatin 10 mg tablet 10 mg PO QDAY 08/01/23 04/30/24 History Allergies Allergy/AdvReac Type Severity Reaction Status Date / Time No Known Allergies Allergy Verified 08/01/23 08:18 Exam Vital Signs Temp Pulse Resp BP Pulse Ox O2 Del Method O2 Flow Rate 97.4 F 86 18 161/95 H 93 L Room Air 5 04/30/24 15:32 04/30/24 15:32 04/30/24 15:32 04/30/24 15:32 04/30/24 15:32 04/30/24 15:32 04/30/24 15:32 Constitutional Constitutional: no acute distress Routine Abdominal Exam Abdominal: Present soft, normoactive bowel sounds and tenderness (Epigastric and right upper quadrant tenderness to palpation with guarding, no rebound tenderness or peritonitis at this time); Absent distended Results Results: Laboratory Laboratory results: results reviewed Results: Imaging Imaging narrative: Abdominal ultrasound, MRCP images reviewed, radiologist interpretation noted Assessment & Plan Problem List (1) Biliary acute pancreatitis without necrosis or infection: Status: Acute Plan Continue IV fluids, may have clear liquid diet. When pancreatitis is resolved and CBD is cleared of stones we will consider laparoscopic possible open cholecystectomy.
[2024-05-01] VITALS (8 sets, daily range): BP systolic 139–170; BP diastolic 87–105; PULSE 81–96; RESP 17–93; TEMP 36.2–37.6; O2SAT 92–94; BMI 43.0
[2024-05-01] MEDS: SODIUM CHLORIDE 0.9% 1000 ML 1,000 ML 150 ML IV ×4 (01:07→21:34)
[2024-05-01] MEDS: PIPER/TAZO INJ 3.375 GM in SODIUM CHLORIDE 0.9% (P) 50 ML IV ×3 (05:44→21:34)
[2024-05-01] MEDS: PANTOPRAZOLE INJ 40 MG VIAL IVP (08:48)
[2024-05-01] MEDS: MEPERIDINE INJ 50 MG/ML VIAL IVP (08:49)
[2024-05-01 09:10] LABS: Basophils % (Auto) 0 % (0-2.5); Eosinophils # (Auto) 0.5 Thou/mm3 (0.0-0.5); Eosinophils % (Auto) 5 % (0-10); Hematocrit 40.3 % (41.0-53.0); Hemoglobin 13.5 g/dL (13.5-16.0); Immature Granulocytes % (Auto) 0 % (0-0); Immature Granulocytes Auto 0.05 Thou/mm3 (0.00-0.00); Lymphocytes # (Auto) 0.9 Thou/mm3 (1.0-4.8); Lymphocytes % (Auto) 8 % (10-50); Mean Corpuscular HGB Conc 33.5 g/dl (31.0-37.0); Mean Corpuscular Hemoglobin 31.2 pg (25.0-35.0); Mean Corpuscular Volume 93 fL (80-100); Monocytes # (Auto) 0.8 Thou/mm3 (0.0-0.8); Monocytes % (Auto) 7 % (0-12); Neutrophils % (Auto) 80 % (37-80); Nucleated Red Blood Cell % 0 /100 WBC (0); Platelet Count 191 Thou/mm3 (140-440); RDW Standard Deviation 47.7 fL (35.1-43.9); Red Blood Count 4.33 Miln/mm3 (4.50-5.90); White Blood Count 11.4 Thou/mm3 (3.8-10.6)
[2024-05-01 09:30] LABS: Alanine Aminotransferase 188 U/L (10-49); Alkaline Phosphatase 212 U/L (46-116); Anion Gap 7 (7-16); Aspartate Amino Transferase 80 U/L (0-34); BUN/Creatinine Ratio 18 Ratio (12-20); Bilirubin,Total 1.4 mg/dL (0.3-1.2); Blood Urea Nitrogen 14 mg/dL (9-23); Calcium 8.6 mg/dL (8.3-10.6); Calcium (Corrected) 8.6 mg/dL (8.5-10.1); Carbon Dioxide 21.7 mMol/L (20.0-31.0); Chloride 106 mMol/L (98-107); Creatinine (Component) 0.8 mg/dL (0.6-1.3); Glucose 79 mg/dL (74-106); Osmolality,Calculated 269 (275-295); Potassium 4.8 mMol/L (3.4-5.1); Sodium 135 mMol/L (136-145); eGFR > 60 See Note
--- NOTE | 2024-05-01 11:52 | PD.SURPROG ---
Documentation for date of: 05/01/24 Subjective Subjective Narrative: Patient is seen and examined. He is still complaining of pain, however improved since yesterday. He has been tolerating liquid diet Exam Vital Signs Temp Pulse Resp BP Pulse Ox O2 Del Method O2 Flow Rate 97.1 F 92 20 139/87 H 92 L Room Air 5 05/01/24 08:00 05/01/24 11:34 05/01/24 11:34 05/01/24 08:00 05/01/24 08:00 05/01/24 08:00 04/30/24 15:32 Constitutional Constitutional: no acute distress Routine Abdominal Exam Abdominal: Present soft, normoactive bowel sounds and tenderness (Right upper quadrant tenderness to palpation with guarding, no rebound tenderness or peritonitis at this time); Absent distended Assessment & Plan Diagnosis (1) Biliary acute pancreatitis without necrosis or infection: Status: Acute Assessment Additional comments: Gallstone pancreatitis, liver enzymes are improving, clinically patient has improved Plan If liver and pancreatic enzymes continue to improve with patient clinically feels better, will plan for laparoscopic possible open cholecystectomy with cholangiogram tomorrow. If not he will require an ERCP.
[2024-05-01] MEDS: traMADol HCL 50 MG TABLET 100 MG PO ×2 (13:53→23:55)
[2024-05-01 15:03] LABS: Collection Type, Urine Clean Catch; Squamous Epithelial Cell,Urine 0 /hpf (0-5)
--- NOTE | 2024-05-01 15:20 | PD.RESPRO ---
Documentation for date of: 05/01/24 Subjective Subjective Interval history: Patient was seen and examined bedside. No acute overnight events. Stated that he is doing well the pain is decreasing. Dr Rodarte saw the patient and recommended cholecystectomy tomorrow if the patient condition clinically improves. was present at the bedside and explained about the patient's current condition and answered all their questions. Ordered urine analysis later as patient complained of dysuria Exam Vital Signs Temp Pulse Resp BP Pulse Ox O2 Del Method O2 Flow Rate 97.1 F 83 18 145/96 H 94 L Room Air 5 05/01/24 12:00 05/01/24 12:00 05/01/24 12:00 05/01/24 12:00 05/01/24 12:00 05/01/24 12:00 04/30/24 15:32 Narrative Exam General: Awake and in no acute distress. Morbidly obese HEENT: Normocephalic, atraumatic, mucous membranes moist. Heart: Regular rate and rhythm, no murmurs. Lungs: Clear to auscultation with no wheezing or crackles. Abdomen: Soft, nondistended, mild tenderness noted in the right upper quadrant and epigastrium. Positive bowel sounds. ?No guarding or rebound tenderness. Neurologic: Alert and oriented x3, no gross neurological deficit, and patient able to move all 4 extremities. Extremities: No edema. Skin: No rash or ecchymoses. Objective Labs 05/02/24 04:17 05/02/24 04:17 Labs: Laboratory Results - last 24 hr 04/30/24 05/01/24 15:13 08:21 WBC 11.4 H RBC 4.33 L Hgb 13.5 D Hct 40.3 L MCV 93 MCH 31.2 MCHC 33.5 RDW Std Deviation 47.7 H Plt Count 191 D Neut % (Auto) 80 Lymph % (Auto) 8 L [place] % (Auto) 7 Eos % (Auto) 5 Baso % (Auto) 0 Neut # (Auto) 9.0 H Lymph # (Auto) 0.9 L [place] # (Auto) 0.8 Eos # (Auto) 0.5 Baso # (Auto) 0.0 Immature Gran # (Auto) 0.05 H Absolute Nucleated RBC 0.00 Immature Gran % 0 Nucleated RBC % 0 Sodium 135 L Potassium 4.8 D Chloride 106 Carbon Dioxide 21.7 Anion Gap 7 BUN 14 Creatinine 0.8 Estim Creat Clear Calc 130.0 eGFR > 60 BUN/Creatinine Ratio 18 Glucose 79 D Calculated Osmolality 269 L Calcium 8.6 Corrected Calcium 8.6 Total Bilirubin 1.4 H D AST 80 H ALT 188 H Alkaline Phosphatase 212 H D Total Protein 6.0 Albumin 4.0 Globulin 2.0 L Albumin/Globulin Ratio 2.0 Ur Collection Type Voided Urine Color Yellow Urine Clarity Clear Urine pH 6.5 Ur Specific [place] 1.023 Urine Protein Trace Urine Glucose (UA) Negative Urine Ketones Negative Urine Blood Negative Urine Nitrite Negative Urine Bilirubin Negative Urine Urobilinogen (Auto) 4.0 Ur Leukocyte Esterase Negative Urine RBC 2 Urine WBC 1 Ur Squamous Epith Cells < 1 Urine Bacteria None Quality Measures Quality Measures sepsis Current suspected stage: ruled out Possible source: GI tract/intra-abdominal Blood cultures ordered: yes Antibiotic ordered: Yes Advance care planning discussed with:: patient Assessment & Plan Assessment Current Active Medications: Generic Name Dose Route Start Last Admin Trade Name Freq PRN Reason Stop Dose Admin Acetaminophen 650 mg 04/30/24 11:50 Acetaminophen 325 Mg Tablet PO 05/30/24 11:49 Q6HR PRN Fever >100.1 Hydromorphone HCl 0.5 mg 05/01/24 09:26 Hydromorphone Inj 2 Mg/Ml Vial IVP 05/06/24 09:25 Q4HR PRN BREAKTHROUGH PAIN (SEVERE) Piperacillin Sod/Tazobactam 50 mls @ 12.5 mls/hr 04/30/24 08:44 05/01/24 13:52 Sod 3.375 gm/ Sodium Chloride IV 05/07/24 08:43 12.5 mls/hr Q8HR PERCY Administration Protocol Sodium Chloride 1,000 mls @ 150 mls/hr 04/30/24 17:19 05/01/24 13:56 Ns IV 05/01/24 17:18 150 mls/hr .Q6H40M PERCY Administration Sodium Chloride 1,000 mls @ 150 mls/hr 05/01/24 17:19 Ns IV 05/31/24 17:18 .Q6H40M PERCY Ondansetron HCl 4 mg 04/30/24 08:45 Ondansetron Inj 2 Mg/Ml Inj 2 Ml IV 05/30/24 08:44 PRN PRN NAUSEA Protocol Pantoprazole Sodium 40 mg 04/30/24 09:00 05/01/24 08:48 Pantoprazole Inj 40 Mg Vial IVP 05/30/24 08:59 40 mg QDAY PERCY Administration Prochlorperazine Edisylate 10 mg 04/30/24 08:48 Prochlorperazine Inj 5 Mg/Ml Vial 2 Ml IV 05/30/24 08:47 Q6HR PRN NAUSEA OR VOMITING Tramadol HCl 100 mg 05/01/24 09:24 05/01/24 13:53 Tramadol Hcl 50 Mg Tablet PO 05/05/24 08:45 100 mg Q6HR PRN Administration PAIN SCALE 4-10(MOD-SEV) Plan 74-year-old male with past medical history of hypertension, peripheral neuropathy, hyperlipidemia, diverticulitis, colovesicular fistula, CAD s/p PCI in 1995, 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 #Acute pancreatitis #2/2 CBD gall stone obstruction -patient had a history of gall bladder stone 1 year ago, as he is asymptomatic at that time no surgical intervention was done at that time. -Recently patient started to have pain abdomen over the last few months -He is following with PCP for the pain and was referred to Dr. Aguilera for further intervention -He underwent MRI abdomen and blood work recently -On 04/29, patient had severe persistent pain which was not relieved with 3 doses of ibuprofen -on examination, there is right upper quadrant and epigastric tenderness on palpation. -Labs showed elevated WBC, TBIL 3.1, AST 291,ALT 370, Lipase 3274, procal 3274 ->12/7, AST 80, ALT 188, TBIL 1.4 -MRCP showed cholelithiasis and dilated CBD with multiple gall stones. -In the ED, patient received fluids, pain medication and zosyn Plan -Dr. Rodarte was consulted and recommended cholecystectomy tomorrow if patient is clinically stable and the liver enzymes continue to downtrend. -Maintenance IV fluids at 150ml/hr -pain medications PRN - Dilaudid and tramadol -Started on clear liquid diet for now as recommended by Dr. Rodarte #Leukocytosis, likely reactive -WBC on 04/29/2024 is 13.6 -->12/7 , 11.4 -likely reactive in the setting of ongoing Acute pancreatitis -Monitor CBC #History of Hypertension -On losartan 100mg p.o. qday athome -Blood pressure is within normal limits during the hospital stay Plan -will resume medications based on his blood pressure. #H/O Peripheral neuropathy -on Nortriptyline 50mg HS qday #H/O Hyperlipidemia -will hold statin for now. Hospital Maintenance: Dispo: medsurg DVT ppx: SCD GI ppx: Protonix Diet :clear liquid IV lines: Peripheral Code status: DNR/DNI Patient plan of care was discussed with the attending physician, Dr. Pola Velasquez, PGY1 Attending Provider Attestation/Addendum I reviewed labs, imaging, EKG, home medications and prior available records. Face to face evaluation was performed by me. I have personally examined the patient and discussed assessment and plan with the IM team. I reviewed the resident note and agree with the plan with exceptions as below. Choledocholithiasis: Without cholangitis. Consulted GI: Recommended IV hydration, IV Zosyn, management of pain, and close monitoring for any signs of cholangitis. Trend LFTs: Downtrending. Possible ERCP once pancreatitis improves. Will follow the patient. Acute pancreatitis: In the setting of cholelithiasis. Started IV hydration. Management of pain/nausea as needed. Started clear liquid diet. Advance as tolerated. GI is following. Cholelithiasis: Complicated with pancreatitis. No evidence of cholecystitis. Consulted surgery for possible cholecystectomy: Recommended laparoscopic cholecystectomy when pancreatitis is treated. Right flank pain: Possible UTI. Ordered UA.
[2024-05-01 15:32] LABS: Bilirubin,Urine Negative (Negative); Blood,Urine Negative (Negative); Clarity,Urine Clear (Clear/Hazy); Color,Urine Yellow (Lt Yel-Yel); Glucose, Urine Negative (Negative); Ketones,Urine Negative (Negative); Leukocyte Esterase,Urine Negative (Negative); Nitrite,Urine Negative (Negative); PH,Urine 6.5 (5.0-7.0); Protein,Urine Negative (Neg - Trace); RBC,Urine 3 /hpf (0-3); Specific Gravity,Urine 1.017 (1.001-1.035); WBC,Urine 1 /hpf (0-5)
[2024-05-01 16:24] LABS: Lipase 538 U/L (12-53)
[2024-05-01] MEDS: hydrALAZINE HCL 10 MG TABLET PO (23:55)
[2024-05-02] VITALS (12 sets, daily range): BP systolic 113–170; BP diastolic 66–105; PULSE 81–103; RESP 13–93; TEMP 36.2–36.8; O2SAT 91–97
--- NOTE | 2024-05-02 00:26 | PC.NURSE ---
Pt's BP 170/105, 163/111, HR 81. Dr Cordova was made aware of pt's BP. Hydralazine po ordered to treat pt's BP.
[2024-05-02 05:27] LABS: Basophils % (Auto) 0 % (0-2.5); Eosinophils % (Auto) 10 % (0-10); Hematocrit 39.6 % (41.0-53.0); Hemoglobin 13.3 g/dL (13.5-16.0); Immature Granulocytes % (Auto) 0 % (0-0); Immature Granulocytes Auto 0.03 Thou/mm3 (0.00-0.00); Lymphocytes # (Auto) 1.1 Thou/mm3 (1.0-4.8); Lymphocytes % (Auto) 10 % (10-50); Mean Corpuscular HGB Conc 33.6 g/dl (31.0-37.0); Mean Corpuscular Hemoglobin 30.8 pg (25.0-35.0); Mean Corpuscular Volume 92 fL (80-100); Monocytes # (Auto) 0.7 Thou/mm3 (0.0-0.8); Monocytes % (Auto) 6 % (0-12); Neutrophils # (Auto) 7.8 Thou/mm3 (1.8-7.7); Neutrophils % (Auto) 73 % (37-80); Nucleated Red Blood Cell % 0 /100 WBC (0); Platelet Count 226 Thou/mm3 (140-440); RDW Standard Deviation 47.7 fL (35.1-43.9); Red Blood Count 4.32 Miln/mm3 (4.50-5.90); White Blood Count 10.7 Thou/mm3 (3.8-10.6)
[2024-05-02] MEDS: PIPER/TAZO INJ 3.375 GM in SODIUM CHLORIDE 0.9% (P) 50 ML IV ×3 (05:52→21:23)
[2024-05-02] MEDS: SODIUM CHLORIDE 0.9% 1000 ML 1,000 ML 150 ML IV (05:52)
[2024-05-02 05:56] LABS: Alanine Aminotransferase 138 U/L (10-49); Albumin/Globulin Ratio 1.8 (1.2-2.2); Alkaline Phosphatase 195 U/L (46-116); Anion Gap 9 (7-16); Aspartate Amino Transferase 47 U/L (0-34); BUN/Creatinine Ratio 14 Ratio (12-20); Bilirubin,Total 1.4 mg/dL (0.3-1.2); Blood Urea Nitrogen 11 mg/dL (9-23); Calcium 8.9 mg/dL (8.3-10.6); Calcium (Corrected) 8.9 mg/dL (8.5-10.1); Carbon Dioxide 22.3 mMol/L (20.0-31.0); Chloride 104 mMol/L (98-107); Creatinine (Component) 0.8 mg/dL (0.6-1.3); Globulin 2.2 gm/dL (2.3-3.5); Glucose 68 mg/dL (74-106); Lipase 134 U/L (12-53); Osmolality,Calculated 267 (275-295); Potassium 3.9 mMol/L (3.4-5.1); Sodium 135 mMol/L (136-145); Total Protein 6.2 gm/dL (5.7-8.2); eGFR > 60 See Note
[2024-05-02 08:30] LABS: INR 1.2 (0.9-1.3); Partial Thromboplastin Time 33.6 Seconds (22.0-36.0); Prothrombin Time 12.5 Seconds (9.0-12.2)
[2024-05-02] MEDS: PANTOPRAZOLE INJ 40 MG VIAL IVP (08:30)
--- NOTE | 2024-05-02 12:30 | XR_ITS ---
Examination: Operative cholangiogram single view Exam date and time: May 02, 2024 1300 hrs. Indications: Post cholecystectomy Technique And Findings: AP film of abdomen obtained with opacification of the intrahepatic and extrahepatic biliary tree No common hepatic or common bile duct stones noted Contrast does not appear the duodenum Impression: No common hepatic or common bile duct stones noted
--- NOTE | 2024-05-02 13:41 | ESOP_ITS ---
Date of Procedure 05/02/24 Pre Op Diagnosis Gallstone pancreatitis Post Op Diagnosis Cholelithiasis with cholecystitis Incarcerated ventral hernia Procedure Laparoscopic cholecystectomy with intraoperative cholangiogram Repair of incarcerated ventral hernia Findings Distended gallbladder with multiple gallstones and chronic cholecystitis. Anterior surface of the liver was smooth without nodules or any lesions. Cholangiogram revealed dilated CBD without obvious stones. Right upper quadrant subcostal 3.5cm ventral hernia with incarcerated omentum and transverse colon Procedure Description Patient was brought into the operating room in supine position. After administration of general endotracheal anesthesia abdomen was prepped and draped in standard surgical manner. A Veress needle was inserted through the umbilicus and pneumoperitoneum was obtained up to 15 mmHg. The Veress needle was then removed, a 5 mm infraumbilical incision was made and the 5mm trocar was inserted. Laparoscopic camera was placed. Under direct visualization a laparoscopic camera a 10 mm trocar was placed in subxiphoid and one 5 mm trocar placed in right upper quadrant. The anterior surface of the liver was smooth without any nodules or any lesions. Patient was noted to have a right upper quadrant subcostal ventral hernia with incarcerated omentum and transverse colon. The transverse colon was reduced. The omentum was also reduced, the distal end of the omentum was attached to the hernia sac. The hernia sac was excised with electrocautery. The defect was approximately 3.5 cm in diameter. Another 5 mm trocar site was placed through the hernia defect, the defect was medial to the other 5 mm trocar site. The gallbladder was identified and was noted to be moderately distended with multiple gallstones and chronic cholecystitis. It was retracted cephalad and laterally. Dissection started near the infundibulum of gallbladder where cystic duct and gallbladder junction clearly identified. The cystic duct was circumferentially dissected off the peritoneum and surrounding inflammatory tissue. The critical view of safety was clearly demonstrated. An Endo Clip placed near the cystic duct and gallbladder junction and a small ductotomy was performed. There were 2 small stones in the cystic duct that were removed through the ductotomy site. Cholangiogram catheter placed through the ductotomy site and contrast was injected. Patient was noted to have unremarkable biliary anatomy with dilated CBD and without obvious CBD stones. The cholangiogram catheter was removed and the cystic duct was divided between 2 endoclips proximally and one distally. The cystic artery was dissected. Patient was noted to have anterior and posterior branches of cystic artery that were individually dissected and divided between 2 endoclips proximally and 1 distally. The gallbladder was then from the liver bed using electrocautery. The gallbladder was then placed inside an Endo Catch and removed from the abdomen utilizing subxiphoid trocar site. The area was copiously and thoroughly washed and irrigated, all the fluid was suctioned and the suction fluid returned clear. Hemostasis achieved using electrocautery. Endoclips noted be in place and intact without any bleeding or any leakage. Hemostasis was adequate and satisfactory. The subxiphoid trocar sites fascial defect was closed with 0 Vicryl using Endo Closure device. The right upper quadrant ventral hernia defect was also closed with interrupted 0 Vicryl sutures using Endo closure device. Instruments and trocars removed, pneumoperitoneum was evacuated and the incisions closed with 4-0 Monocryl in subcuticular fashion. Instrument needle and sponge counts were all reported to be correct X2. Patient tolerated the procedure well, was extubated, breathing spontaneously and without difficulty and was transferred to postanesthesia care in stable condition. Anesthesia GETA and local Pathology / specimen Other (Gallbladder and contents) Estimated Blood Loss 100 Condition Stable Disposition PACU Surgeon Juan Luis Rodarte MD Surgical Staff Operation Date: 05/02/24 12:45 Case Staff [employer] ARRANGEMENT SPECIALIST: Marcellus March RN First Assistant: Nena Lazcano
--- NOTE | 2024-05-02 13:45 | SUR.PHASEI ---
1345: Pt. arrived with oral airway in place, vitals stable, breathing unlabored, x4 dermabond sites to ABD CDI, no active bleed noted, report received from Marcellus CAMPOS and Leslie CRUZ.
[2024-05-02] MEDS: ALBUTEROL/IPRATROPIUM (Duoneb) RT SOL 3 ML NEBU INH (13:55)
--- NOTE | 2024-05-02 14:18 | PD.RESPRO ---
Documentation for date of: 05/02/24 Subjective Subjective Interval history: Patient seen and examined at bedside. No acute overnight events. Patient is clinically improved and lab work acceptable to undergo lap cholecystectomy. Dr Rodarte consulted and patient NPO since midnight for possible laparascopic cholecystectomy today. 2PM update: Patient is s/p successful Lap Cholecystectomy and intraoperative cholangiogram by Dr Rodarte As per operative report: 2 small stones in the cystic duct were removed through the ductotomy site. Cholangiogram catheter placed through the ductotomy site and contrast injected. Patient was noted to have unremarkable biliary anatomy with dilated CBD and without obvious CBD stones. Exam Vital Signs Temp Pulse Resp BP Pulse Ox O2 Del Method O2 Flow Rate 98.0 F 103 H 13 134/85 H 95 CPAP 4 05/02/24 14:00 05/02/24 14:00 05/02/24 14:00 05/02/24 14:00 05/02/24 14:00 05/02/24 12:00 05/02/24 14:00 Narrative Exam Constitutional Alert, oriented x3 and comfortable HEENT Vision grossly intact. Patent nares. Trachea midline. Respiratory Chest normal on inspection and clear to auscultation bilaterally. Cardiovascular S1 and S2 audible, RRR. No murmurs or carotid bruit. No gross JVD. Abdominal Soft and non tender to palpation in all quadrants. BS + Genitourinary No bladder tenderness, no flank pain. Normal to palpation. Musculoskeletal Extremities tone within normal limits. No LE edema. Neurological CN II - XII grossly intact. Extremity motor and sensation grossly intact. Skin Warm, dry and intact. No apparent lesions. Psychiatric Patient has a good affect, is cooperative. Objective Labs 05/03/24 05:00 05/03/24 05:00 Labs: Laboratory Results - last 24 hr 05/01/24 05/01/24 05/02/24 08:21 14:45 04:17 WBC 10.7 H RBC 4.32 L Hgb 13.3 L Hct 39.6 L MCV 92 MCH 30.8 MCHC 33.6 RDW Std Deviation 47.7 H Plt Count 226 D Neut % (Auto) 73 Lymph % (Auto) 10 [place] % (Auto) 6 Eos % (Auto) 10 Baso % (Auto) 0 Neut # (Auto) 7.8 H Lymph # (Auto) 1.1 [place] # (Auto) 0.7 Eos # (Auto) 1.0 H Baso # (Auto) 0.0 Immature Gran # (Auto) 0.03 H Absolute Nucleated RBC 0.00 Immature Gran % 0 Nucleated RBC % 0 PT 12.5 H INR 1.2 APTT 33.6 Sodium 135 L Potassium 3.9 D Chloride 104 Carbon Dioxide 22.3 Anion Gap 9 BUN 11 Creatinine 0.8 Estim Creat Clear Calc 130.0 eGFR > 60 BUN/Creatinine Ratio 14 Glucose 68 L Calculated Osmolality 267 L Calcium 8.9 Corrected Calcium 8.9 Total Bilirubin 1.4 H AST 47 H ALT 138 H Alkaline Phosphatase 195 H Total Protein 6.2 Albumin 4.0 Globulin 2.2 L Albumin/Globulin Ratio 1.8 Lipase 538 H D 134 H D Ur Collection Type Clean Catch Urine Color Yellow Urine Clarity Clear Urine pH 6.5 Ur Specific [place] 1.017 Urine Protein Negative Urine Glucose (UA) Negative Urine Ketones Negative Urine Blood Negative Urine Nitrite Negative Urine Bilirubin Negative Urine Urobilinogen (Auto) 4.0 Ur Leukocyte Esterase Negative Urine RBC 3 Urine WBC 1 Ur Squamous Epith Cells 0 Urine Bacteria None Quality Measures Quality Measures sepsis Current suspected stage: ruled out Possible source: GI tract/intra-abdominal Blood cultures ordered: yes Antibiotic ordered: Yes Advance care planning discussed with:: patient Assessment & Plan Assessment Current Active Medications: Generic Name Dose Route Start Last Admin Trade Name Freq PRN Reason Stop Dose Admin Acetaminophen 650 mg 04/30/24 11:50 Acetaminophen 325 Mg Tablet PO 05/30/24 11:49 Q6HR PRN Fever >100.1 Albuterol/Ipratropium 3 ml 05/02/24 12:47 05/02/24 13:55 Albuterol/Ipratropium (Duoneb) Rt Zeo 3 Ml Nebu INH 06/01/24 12:46 3 ml Q4HRRT PRN Administration SHORTNESS OF BREATH Fentanyl Citrate 50 mcg 05/02/24 12:47 Fentanyl Cit Inj 50 Mcg/Ml Amp 2ml IV 05/02/24 14:47 Q5M PRN PAIN SCALE 4-6 (Moderate Hydralazine HCl 10 mg 05/01/24 23:46 05/01/24 23:55 Hydralazine Hcl 10 Mg Tablet PO 05/31/24 23:45 10 mg Q6HR PRN Administration SBP>160 Hydralazine HCl 10 mg 05/02/24 12:47 Hydralazine Inj 20 Mg/Ml Vial IV 05/02/24 14:47 X1 ONE Hydromorphone HCl 0.5 mg 05/01/24 09:26 Hydromorphone Inj 2 Mg/Ml Vial IVP 05/06/24 09:25 Q4HR PRN BREAKTHROUGH PAIN (SEVERE) Hydromorphone HCl 0.5 mg 05/02/24 12:47 Hydromorphone Inj 2 Mg/Ml Vial IVP 05/02/24 14:48 Q10MIN PRN severe pain 7-10 Piperacillin Sod/Tazobactam 50 mls @ 12.5 mls/hr 04/30/24 08:44 05/02/24 05:52 Sod 3.375 gm/ Sodium Chloride IV 05/07/24 08:43 12.5 mls/hr Q8HR PERCY Administration Protocol Sodium Chloride 1,000 mls @ 150 mls/hr 05/01/24 17:19 05/02/24 05:52 Ns IV 05/31/24 17:18 150 mls/hr .Q6H40M PERCY Administration Labetalol HCl 5 mg 05/02/24 12:47 Labetalol Inj 5 Mg/Ml Vial 20 Ml IVP 05/02/24 14:48 Q10MIN PRN SBP >180 DBP>100 or HR >100 Metoprolol Tartrate 2.5 mg 05/02/24 12:47 Metoprolol Tartrate Inj 1 Mg/Ml Amp 5 Ml IVP 05/02/24 14:48 PRN PRN Heart Rate- High Ondansetron HCl 4 mg 04/30/24 08:45 Ondansetron Inj 2 Mg/Ml Inj 2 Ml IV 05/30/24 08:44 PRN PRN NAUSEA Protocol Pantoprazole Sodium 40 mg 04/30/24 09:00 05/02/24 08:30 Pantoprazole Inj 40 Mg Vial IVP 05/30/24 08:59 40 mg QDAY PERCY Administration Prochlorperazine Edisylate 10 mg 04/30/24 08:48 Prochlorperazine Inj 5 Mg/Ml Vial 2 Ml IV 05/30/24 08:47 Q6HR PRN NAUSEA OR VOMITING Promethazine HCl 12.5 mg 05/02/24 12:47 Promethazine Inj 25 Mg/Ml Vial IV 05/02/24 14:48 Q30M PRN NAUSEA Tramadol HCl 100 mg 05/01/24 09:24 05/01/24 23:55 Tramadol Hcl 50 Mg Tablet PO 05/05/24 08:45 100 mg Q6HR PRN Administration PAIN SCALE 4-10(MOD-SEV) Plan Mr Gambino is a pleasant 74-year-old male with past medical history of hypertension, peripheral neuropathy, hyperlipidemia, diverticulitis, colovesicular fistula, CAD s/p PCI in 1995, 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 1. Acute gallstone pancreatitis 2. Choledocholithiasis, no cholangitis 3. Leukocytosis, likely reactive History of gall bladder stone 1 year ago, as he is asymptomatic at that time no surgical intervention was done at that time. He was referred to Dr. Aguilera for further intervention -On 04/29, patient had severe persistent pain which was not relieved with 3 doses of ibuprofen. On examination, there is right upper quadrant and epigastric tenderness on palpation. -Labs on admission : WBC 12, TBIL 3.1, AST 291,ALT 370, Lipase 3274, procal 3274 ->12/7, AST 80, ALT 188, TBIL 1.4 -Consulted GI: Recommended IV hydration, IV Zosyn, management of pain, and close monitoring for signs of cholangitis -MRCP : cholelithiasis and dilated CBD with multiple gall stones. -Consulted surgery Dr. Rodarte was consulted appreciate recommendations. Patient n.p.o. since midnight 05/02/2024: S/p laparoscopic cholecystectomy and intraoperative cholangiogram today 05/02/[address] Rodarte As per operative report: 2 small stones in the cystic duct were removed through the ductotomy site. Cholangiogram catheter placed through the ductotomy site and contrast injected. Patient was noted to have unremarkable biliary anatomy with dilated CBD and without obvious CBD stones. Plan -WBC 12 --> 10.7, leukocytosis was likely reactive in the setting of gallstone pancreatitis -Pain controlled with PRN IV Dilaudid and p.o. Tramadol -As needed laxative : docusate 100 mg p.o. twice daily constipation added by general surgery -As needed antiemetics : Zofran 4 mg every 6 hours, prochlorperazine 10 mg every 6 hours -Continue prophylactic IV Zosyn 3.375 every 8 hours -General Surgery started patient on clear liquid diet, will monitor closely to assess oral intake tolerance 4. RT flank pain - resolved Plan Possible UTI. Ordered UA Patient is alreadyon IV Zosyn broad spectrum coverage 5. Primary Hypertension -On losartan 100mg p.o. qday at home -Blood pressure is within normal limits during the hospital stay Plan -Resumed Losartan 100mg qD as SBP 130-140 -PRN hydralazine 10 mg to 6 hours for SBP > 160 6. Peripheral neuropathy 7. Hyperlipidemia 8. Morbid obesity Patient is not complaining of any neuropathic pain at this time Patient takes rosuvastatin 10 mg daily at home BMI 43, morbidly obese Plan -Hold nortriptyline 50mg HS qday for now -will hold statin for now, to be resumed once back on normal diet -Counseled on low-fat diet given cholecystectomy, and exercise for weight loss -Patient will benefit from outpatient GLP-1 therapy weight loss Hospital Maintenance: Dispo: medsurg, s/p laparoscopic cholecystectomy on 05/02 DVT ppx: SCD GI ppx: Protonix Diet: clear liquid IV lines: Peripheral Code status: DNR/DNI Plan of care discussed with attending Dr Escalona , Manav Lewis MD, PGY 2 Attending Provider Attestation/Addendum I reviewed labs, imaging, EKG, home medications and prior available records. Face to face evaluation was performed by me. I have personally examined the patient and discussed assessment and plan with the IM team. I reviewed the resident note and agree with the plan with exceptions as below. Choledocholithiasis: Without cholangitis. Consulted GI: Recommended IV hydration, IV Zosyn, management of pain, and close monitoring for any signs of cholangitis. Trend LFTs: Downtrending. Possible ERCP once pancreatitis improves. Will follow the patient. Acute pancreatitis: In the setting of cholelithiasis. Started IV hydration. Management of pain/nausea as needed. Started clear liquid diet. Advance as tolerated. GI is following. Cholelithiasis: Complicated with pancreatitis. No evidence of cholecystitis. Consulted surgery for possible cholecystectomy: Recommended laparoscopic cholecystectomy and the patient is planned for the surgery on 05/02. Transaminitis: In the setting of choledocholithiasis and cholecystitis. Downtrending. Monitor LFTs.
--- NOTE | 2024-05-02 14:20 | SUR.PHASEI ---
1420: Pt. AAOx4, vitals stable, breathing unlabored, no complaint of pain or nausea, x4 dermabond sites to ABD CDI, no active bleed noted, pt. tolerated bites of ice chips well. Gave report to Davina CRUZ prior to transfer to room 354. Family made aware of transfer to room.
[2024-05-02] MEDS: traMADol HCL 50 MG TABLET 100 MG PO (17:41)
[2024-05-02] MEDS: HYDROmorphone INJ 2 MG/ML VIAL 1 MG IVP (19:29)
[2024-05-02] MEDS: NORTRIPTYLINE HCL 25 MG CAPSULE 100 MG PO (20:11)
[2024-05-02] MEDS: DOCUSATE SOD 100 MG CAPSULE PO (20:12)
[2024-05-03] VITALS: BP 129/82; PULSE 85; RESP 18; TEMP 36.2; O2SAT 92
[2024-05-03 04:00] VITALS: BP 137/89; PULSE 88; RESP 18; TEMP 37.1; O2SAT 93
[2024-05-03] MEDS: PIPER/TAZO INJ 3.375 GM in SODIUM CHLORIDE 0.9% (P) 50 ML IV (05:06)
[2024-05-03 06:14] LABS: Basophils % (Auto) 0 % (0-2.5); Eosinophils # (Auto) 0.2 Thou/mm3 (0.0-0.5); Eosinophils % (Auto) 3 % (0-10); Monocytes % (Auto) 8 % (0-12); Nucleated Red Blood Cell % 0 /100 WBC (0)
[2024-05-03 06:16] LABS: Hemoglobin 12.4 g/dL (13.5-16.0); Immature Granulocytes % (Auto) 0 % (0-0); Immature Granulocytes Auto 0.03 Thou/mm3 (0.00-0.00); Lymphocytes # (Auto) 0.6 Thou/mm3 (1.0-4.8); Lymphocytes % (Auto) 7 % (10-50); Mean Corpuscular HGB Conc 32.6 g/dl (31.0-37.0); Mean Corpuscular Hemoglobin 30.3 pg (25.0-35.0); Mean Corpuscular Volume 93 fL (80-100); Monocytes # (Auto) 0.7 Thou/mm3 (0.0-0.8); Neutrophils # (Auto) 6.4 Thou/mm3 (1.8-7.7); Neutrophils % (Auto) 81 % (37-80); Platelet Count 239 Thou/mm3 (140-440); RDW Standard Deviation 47.9 fL (35.1-43.9); Red Blood Count 4.09 Miln/mm3 (4.50-5.90); White Blood Count 7.9 Thou/mm3 (3.8-10.6)
[2024-05-03 06:41] LABS: Alanine Aminotransferase 125 U/L (10-49); Albumin/Globulin Ratio 1.9 (1.2-2.2); Alkaline Phosphatase 169 U/L (46-116); Anion Gap 8 (7-16); Aspartate Amino Transferase 61 U/L (0-34); BUN/Creatinine Ratio 14 Ratio (12-20); Bilirubin,Total 0.9 mg/dL (0.3-1.2); Blood Urea Nitrogen 13 mg/dL (9-23); Calcium 8.9 mg/dL (8.3-10.6); Calcium (Corrected) 8.9 mg/dL (8.5-10.1); Carbon Dioxide 24.8 mMol/L (20.0-31.0); Chloride 102 mMol/L (98-107); Creatinine (Component) 0.9 mg/dL (0.6-1.3); Estimated Creatinine Clearance 115.6 mL/min (>60); Globulin 2.1 gm/dL (2.3-3.5); Glucose 110 mg/dL (74-106); Lipase 52 U/L (12-53); Osmolality,Calculated 271 (275-295); Potassium 4.3 mMol/L (3.4-5.1); Sodium 135 mMol/L (136-145); Total Protein 6.1 gm/dL (5.7-8.2); eGFR > 60 See Note
[2024-05-03 07:26] VITALS: PULSE 84; RESP 18; O2SAT 95
[2024-05-03 08:00] VITALS: BP 139/80; PULSE 82; RESP 18; TEMP 36.5; O2SAT 92
[2024-05-03 08:42] VITALS: BP 139/80; PULSE 82
[2024-05-03] MEDS: LOSARTAN POTASSIUM 25 MG TABLET 100 MG PO (08:42)
[2024-05-03] MEDS: PANTOPRAZOLE INJ 40 MG VIAL IVP (08:42)
[2024-05-03] MEDS: DOCUSATE SOD 100 MG CAPSULE PO (08:42)
[2024-05-03 10:14] LABS: Magnesium 1.8 mg/dL (1.6-2.6)
[2024-05-03 10:59] LABS: C-Reactive Protein 22.1 mg/dL (0.0-0.9); Procalcitonin 1.51 ng/ml (0.0-0.49)
--- NOTE | 2024-05-03 11:55 | PC.NURSE ---
Dr. Rodarte at bedside. Per Dr. Rodarte, stop ursodiol and cancel MRCP, and pt will be discharged today. Family at bedside and notified.
--- NOTE | 2024-05-03 12:04 | PD.SURPROG ---
Documentation for date of: 05/03/24 Subjective Subjective Narrative: Patient is seen and examined. He is feeling much better. He is tolerating clear liquids without nausea or vomiting Exam Vital Signs Temp Pulse Resp BP Pulse Ox O2 Del Method O2 Flow Rate 97.7 F 82 18 139/80 H 92 L Room Air 2 05/03/24 08:00 05/03/24 08:42 05/03/24 08:00 05/03/24 08:42 05/03/24 08:00 05/03/24 08:00 05/03/24 07:26 Constitutional Constitutional: no acute distress Routine Abdominal Exam Abdominal: Present soft, normoactive bowel sounds and tenderness (He has mild jaden-incisional tenderness. Incisions are clean, dry and intact); Absent distended Assessment & Plan Assessment Additional comments: Postop day #1 status post laparoscopic cholecystectomy with cholangiogram, repair of incarcerated ventral hernia. Cholangiogram did not show CBD stones and his liver enzymes are improving Plan Low-fat diet for lunch and then patient can be discharged home. He does not need MRCP as cholangiogram was unremarkable and his liver enzymes are improving. Procedures Procedures Laparoscopic cholecystectomy with intraoperative cholangiogram Repair of incarcerated ventral hernia
--- NOTE | 2024-05-03 15:08 | PC.PT ---
Attempt to initiate PT evaluation at 1130, Patient was in the restroom and as per , he walk independently without AD to go to the restroom. Will cancel PT evaluation secondary to patient is I. verbalized understanding. Nurse made aware.
--- NOTE | 2024-05-03 16:00 | ESDS_ITS ---
<Statement entered by Manav Lewis MD - 05/04/24 07:47> Patient was examined with the team including attending physician. Note reviewed, I agree with the discharge plan as documented. 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 Vitals are stable at the time of admission except for tachycardia heart rate 118. Labs at the time of admission showed elevated WBC count 13.6, total bilirubin 3.1, AST 291, ALT 370, ALP 370, LDH 360, lipase 3274, procalcitonin 11.96. MRCP done on 04/2024 showed cholelithiasis with enlarged CBD with multiple gallstones. Pat ient was treated with IV fluids, antibiotics and pain medications as needed. Dr Rodarte was consulted and patient underwent surgery on 05/02/2024-laparoscopic cholecystectomy with intraoperative cholangiogram that revealed dilated CBD without obvious stones. Repair of incarcerated ventral hernia was done with incarcerated omentum and transverse colon. Postoperative. Was uneventful. Lipase levels came back to within normal limits. Patient had a bowel movement on 05/03/2024. Patient was discharged to home with the following medications and recommendations. -Follow-up with PCP within 1 week of discharge. If you do not have appointment, please follow-up with the [facility] with Dr. Velasquez. Call [phone] to make an appointment. -Follow up with Dr. Rodarte within 1 week of discharge -Take pain medications as prescribed. Continue other home medication as prescribed by your PCP -Recommended weight loss -Return to ED if symptoms persist or return #Acute pancreatitis #2/2 CBD gall stone obstruction #Leukocytosis, likely reactive #History of Hypertension #H/O Peripheral neuropathy #H/O Hyperlipidemia Patient plan of care was discussed with the attending physician, Dr. Escalona and senior resident Dr.Verma Linus Velasquez, PGY1 Time Spent with Patient Time attestation: Total time spent providing and/or coordinating discharge services: Time spent: Greater than 30 minutes Exam Narrative Exam General: Awake. Obese. HEENT: Normocephalic, atraumatic, mucous membranes moist. Heart: Regular rate and rhythm, no murmurs. Lungs: Clear to auscultation with no wheezing or crackles. Abdomen: Soft, nondistended, positive bowel sounds. ?No guarding or rebound tenderness. Mild tenderness noticed at the site of laparoscopic incisions. Neurologic: Alert and oriented x3, no gross neurological deficit, and patient able to move all 4 extremities. Extremities: No edema. Skin: No rash or ecchymoses. Discharge Plan Plan Patient Disposition: HOME (Self Care) Patient condition on transfer: Stable Prescriptions/Referrals Prescriptions/Med Rec: No Action nortriptyline 50 mg capsule 2 tab PO HS 30 Days Qty: 15 Patient Comments: docusate sodium 100 mg Capsule 100 mg PO BID Qty: 40 0RF hydrocodone-acetaminophen 5-325 mg tablet 1 tab PO Q6H MDD 4 PRN (Reason: pain (scale score 7-10)) Qty: 20 0RF metoclopramide HCl 10 mg tablet 10 mg PO Q6H PRN (Reason: nausea and vomiting) Qty: 14 0RF pantoprazole 40 mg tablet,delayed release (DR/EC) 40 mg PO QDAY PRN (Reason: acid reflux) 14 Days Qty: 14 0RF losartan 100 mg tablet 100 mg PO QDAY Patient Comments: TAKE 1 TABLET BY MOUTH EVERY DAY rosuvastatin 10 mg tablet 10 mg PO QDAY Hold Instructions: Resume on 05/24/24. HOLD until follow up with Dr Rodarte Patient Comments: TAKE 1 TABLET BY MOUTH EVERY DAY FOR 30 DAYS Referrals: No Primary/Family,Physician [Primary Care Provider] - Patient/Caregiver Discharge Instructions Discharge Activity: activity as tolerated and resume usual activities Other Discharge Activity Instructions:: -Follow-up with PCP within 1 week of discharge. If you do not have appointment, please follow-up with the [facility] with Dr. Velasquez. Call [phone] to make an appointment. -Follow up with Dr. Rodarte within 1 week of discharge -Take pain medications as prescribed. Continue other home medication as prescribed by your PCP -Recommended weight loss -Return to ED if symptoms persist or return Education Materials: Pancreatitis Acute Dc Print Language: Georgian Stand Alone Forms: Patient Portal Info Letter Quality Discharge Quality Measures VTE prophylaxis MD Attestestation MD Attestation I reviewed labs, imaging, EKG, home medications and prior available records. Face to face evaluation was performed by me. I have personally examined the patient and discussed assessment and plan with the IM team. I reviewed the resident note and agree with the plan with exceptions as below. Choledocholithiasis: Without cholangitis. LFTs are downtrending. Status post cholecystectomy. Cholangiogram showed no bile duct stones. Discussed with surgery: No need for MRCP. Acute pancreatitis: In the setting of cholelithiasis. Status post IV hydration. Management of pain/nausea as needed. He tolerated his diet and had a bowel movement. Cholelithiasis: Complicated with pancreatitis. No evidence of cholecystitis. Status post laparoscopic cholecystectomy. Incidental finding of incarcerated ventral hernia status postrepair. Follow-up with surgery as outpatient in 1 week. Transaminitis: In the setting of choledocholithiasis and cholecystitis. Downtrending. Time spent is 40 minutes. More than 50% of the time was spent on patient education and coordination of care.
== END 2024-05-03 15:13 | disposition home or self-care (01) | DRG 417 ==
LOC: SERX 04-30 08:18 → SERHOLD 04-30 09:11 → S3NX 04-30 10:14
PROVIDERS: Emergency Medicine; Student in an Organized Health Care Education/Training Program; Surgery; Admitting Provider Student in an Organized Health Care Education/Training Program; Emergency Provider Emergency Medicine; PCP Family Medicine; Visit Provider Student in an Organized Health Care Education/Training Program
PROC: 0FT44ZZ Resection of Gallbladder, Percutaneous Endoscopic Approach (ICD-10-PCS; CPT 47562; principal; 2024-05-02 12:30)
DX: K80.10 Calculus of gallbladder with chronic cholecystitis without obstruction (principal); K85.10 Biliary acute pancreatitis without necrosis or infection; K43.6 Other and unspecified ventral hernia with obstruction, without gangrene; Z68.41 Body mass index [BMI] 40.0-44.9, adult; E66.01 Morbid (severe) obesity due to excess calories; G62.9 Polyneuropathy, unspecified; I10 Essential (primary) hypertension; I25.10 Atherosclerotic heart disease of native coronary artery without angina pectoris; E78.5 Hyperlipidemia, unspecified; F17.290 Nicotine dependence, other tobacco product, uncomplicated; Z66 Do not resuscitate; Z79.899 Other long term (current) drug therapy
CPT/HCPCS: 36415; 71045; 74300; 80053; 80061; 80074; 81001; 81596; 82150; 82248; 82306; 82607; 82728; 83036; 83605; 83615; 83690; 83735; 84100; 84145; 84153; 84443; 84484; 85025; 85610; 85730; 86140; 86301; 87040; 87086; 87389; 96374; 96375; 99291; A4217; A4649; A9270; J1100; J2175; J2270; J2405; J2470; J2543; J2704; J3010; J3490; J7030; J7050; S8037; 74181; J1805

== ENCOUNTER → 2024-09-06 | Outpatient (CLI) | payer MEDICARE, BC, SELFPAY ==
[2024-09-06 11:44] LABS: Prostate Specific Antigen 1.35 ng/mL (0-4.00)
[2024-09-06 11:45] LABS: Basophils # (Auto) 0.1 Thou/mm3 (0.0-0.2); Basophils % (Auto) 1 % (0-2.5); Eosinophils # (Auto) 0.4 Thou/mm3 (0.0-0.5); Eosinophils % (Auto) 7 % (0-10); Hematocrit 47.1 % (41.0-53.0); Hemoglobin 15.3 g/dL (13.5-16.0); Immature Granulocytes % (Auto) 1 % (0-0); Immature Granulocytes Auto 0.04 Thou/mm3 (0.00-0.00); Lymphocytes # (Auto) 1.3 Thou/mm3 (1.0-4.8); Lymphocytes % (Auto) 21 % (10-50); Mean Corpuscular HGB Conc 32.5 g/dl (31.0-37.0); Mean Corpuscular Hemoglobin 30.5 pg (25.0-35.0); Mean Corpuscular Volume 94 fL (80-100); Monocytes # (Auto) 0.5 Thou/mm3 (0.0-0.8); Monocytes % (Auto) 8 % (0-12); Neutrophils # (Auto) 4.1 Thou/mm3 (1.8-7.7); Neutrophils % (Auto) 63 % (37-80); Nucleated Red Blood Cell % 0 /100 WBC (0); Platelet Count 295 Thou/mm3 (140-440); RDW Standard Deviation 46.8 fL (35.1-43.9); Red Blood Count 5.01 Miln/mm3 (4.50-5.90); White Blood Count 6.4 Thou/mm3 (3.8-10.6)
[2024-09-06 11:46] LABS: Glucose Estimated Average 108 mg/dL (80-131); Hemoglobin A1C 5.4 % Hgb (4.8-6.0)
[2024-09-06 11:50] LABS: Vitamin B12 539 pg/mL (211-911); Vitamin D 25 Hydroxy Total 34.2 ng/mL (7.3-40.2)
[2024-09-06 11:58] LABS: Alanine Aminotransferase 37 U/L (10-49); Albumin, Serum 4.1 gm/dL (3.4-4.8); Alkaline Phosphatase 97 U/L (46-116); Anion Gap 9 (7-16); Aspartate Amino Transferase 24 U/L (0-34); BUN/Creatinine Ratio 19 Ratio (12-20); Bilirubin,Total 0.6 mg/dL (0.3-1.2); Blood Urea Nitrogen 19 mg/dL (9-23); Calcium 9.5 mg/dL (8.3-10.6); Calcium (Corrected) 9.5 mg/dL (8.5-10.1); Carbon Dioxide 25.1 mMol/L (20.0-31.0); Cardiac Risk Estimate 2.8 RATIO (4.0-6.7); Chloride 110 mMol/L (98-107); Cholesterol 104 mg/dL (132-200); Globulin 2.1 gm/dL (2.3-3.5); Glucose 97 mg/dL (74-106); HDL Cholesterol 37 mg/dL (40-60); LDL Cholesterol,Calculated 47 mg/dL (0-130); Osmolality,Calculated 289 (275-295); Potassium 5.1 mMol/L (3.4-5.1); Sodium 144 mMol/L (136-145); Thyroid Stimulating Hormone 2.11 uIU/mL (0.55-4.78); Total Protein 6.2 gm/dL (5.7-8.2); Triglycerides 99 mg/dL (30-150); eGFR > 60 See Note
== END | disposition home or self-care (01) ==
LOC: COPL 10:08
PROVIDERS: PCP Family Medicine; Referring Provider Physician Assistant; Visit Provider Physician Assistant
DX: I10 Essential (primary) hypertension (principal); E55.9 Vitamin D deficiency, unspecified; R73.01 Impaired fasting glucose; E78.5 Hyperlipidemia, unspecified
CPT/HCPCS: 36415; 80053; 80061; 81001; 82306; 82607; 83036; 84153; 84443; 85025

== ENCOUNTER → 2024-09-08 | Outpatient (CLI) | payer MEDICARE, BC, SELFPAY ==
[2024-09-08 11:25] LABS: Collection Type, Urine Clean Catch; Squamous Epithelial Cell,Urine 0 /hpf (0-5)
[2024-09-08 12:02] LABS: Bilirubin,Urine Negative (Negative); Blood,Urine Negative (Negative); Clarity,Urine Clear (Clear/Hazy); Color,Urine Lt-Yellow (Lt Yel-Yel); Culture Indicated,Urine Not Indicated; Glucose, Urine Negative (Negative); Ketones,Urine Negative (Negative); Leukocyte Esterase,Urine Negative (Negative); Nitrite,Urine Negative (Negative); PH,Urine 6.5 (5.0-7.0); Protein,Urine Negative (Neg - Trace); RBC,Urine 1 /hpf (0-3); Specific Gravity,Urine 1.012 (1.001-1.035); Urobilinogen,Urine Negative mg/dL (0.0-1.0); WBC,Urine 2 /hpf (0-5)
[2024-09-13 08:15] LABS: Fecal Globin Result NOT DETECTED (NOT DETECTED)
== END | disposition home or self-care (01) ==
LOC: SLDO 11:04
PROVIDERS: PCP Physician Assistant; Referring Provider Physician Assistant; Visit Provider Physician Assistant
DX: I10 Essential (primary) hypertension (principal); E55.9 Vitamin D deficiency, unspecified; R73.01 Impaired fasting glucose; E78.5 Hyperlipidemia, unspecified
CPT/HCPCS: 81001; 82274; G0328

== ENCOUNTER → 2024-09-27 | Outpatient (CLI) | payer MEDICARE, BC, SELFPAY ==
--- NOTE | 2024-09-27 12:40 | XR_ITS ---
Examination: Bone densitometry Date and time of exam:September 27, 2024 1212 hours INDICATIONS: 74-year-old male with diagnosis age related osteoporosis, also history right kidney carcinoma 8 years ago Technique: Lumbar spine and hip total bone mineralization values of an calculated. Peak reference and age match control results have been displayed. Findings: Lumbar spine total bone mineralization is1.630 gm/cm2. This is 5.1 standard deviations above peak reference. This is 6.1 standard deviations above age-matched controls. Hip total bone mineralization is 1.425 gm/cm2 This is 2.6 standard deviations above peak reference. This is 3.4 standard deviations above age-matched controls Impression: There is normal mineralization based on lumbar spine measurements. There is normal mineralization based on hip measurements
== END | disposition home or self-care (01) ==
LOC: CDIM 11:21
PROVIDERS: Referring Provider Family Medicine; Visit Provider Family Medicine
DX: Z13.820 Encounter for screening for osteoporosis (principal)
CPT/HCPCS: 77080

== ENCOUNTER → 2024-10-01 | Outpatient (CLI) | payer MEDICARE, BC, SELFPAY ==
--- NOTE | 2024-10-01 14:38 | XR_ITS ---
Examination: CT chest, without intravenous contrast. Sagittal and coronal 2-D reconstructions. Exam date and time: October 01, 2024 1445 hours INDICATIONS: Smoking history, history pulmonary nodules CT chest August 04, 2023, 4 mm left midlung 5 mm right middle lobe 3 mm right lower lobe CTDI:vol (mGy) 25.2 DLP: (mGycm) 1087 Technique: Multiple 3.0 mm axial sections of the chest to been obtained. Bone and lung density settings are obtained. Sagittal and coronal 2-D reconstructions have been obtained. Low dose protocols were performed. One or more of the following dose reduction techniques were used; automated exposure control, adjustment of the mA and/or KV according to patient size, use of iterative reconstruction technique. Findings: AP dimension ascending thoracic aorta 4.1 cm Heavy calcification left main left anterior descending left circumflex right coronary arteries No paratracheal tracheobronchial or bronchopulmonary adenopathy Subcentimeter bilateral pulmonary nodules No new pulmonary nodules No pneumonia or pulmonary edema Liver cysts Absent gallbladder No pancreatic mass IMPRESSION: Mild aneurysmal dilatation ascending thoracic aorta Stable subcentimeter bilateral pulmonary nodules
== END | disposition home or self-care (01) ==
LOC: CCTX 14:31
PROVIDERS: PCP Family Medicine; Referring Provider Physician Assistant; Visit Provider Physician Assistant
DX: R91.8 Other nonspecific abnormal finding of lung field (principal); I71.21 Aneurysm of the ascending aorta, without rupture
CPT/HCPCS: 71250

== ENCOUNTER → 2025-04-28 | Outpatient (CLI) | payer MEDICARE, BC, SELFPAY ==
[2025-04-28 11:18] LABS: Glucose Estimated Average 103 mg/dL (80-131); Hemoglobin A1C 5.2 % Hgb (4.8-6.0)
[2025-04-28 11:22] LABS: Alanine Aminotransferase 45 U/L (10-49); Albumin, Serum 4.8 gm/dL (3.4-4.8); Albumin/Globulin Ratio 1.8 (1.2-2.2); Alkaline Phosphatase 82 U/L (46-116); Anion Gap 10 (7-16); Aspartate Amino Transferase 36 U/L (0-34); BUN/Creatinine Ratio 23 Ratio (12-20); Bilirubin,Total 0.8 mg/dL (0.3-1.2); Blood Urea Nitrogen 25 mg/dL (9-23); Calcium 9.5 mg/dL (8.3-10.6); Calcium (Corrected) 9.5 mg/dL (8.5-10.1); Carbon Dioxide 25.1 mMol/L (20.0-31.0); Cardiac Risk Estimate 3.3 RATIO (4.0-6.7); Chloride 108 mMol/L (98-107); Cholesterol 126 mg/dL (132-200); Creatinine (Component) 1.1 mg/dL (0.6-1.3); Globulin 2.6 gm/dL (2.3-3.5); Glucose 109 mg/dL (74-106); HDL Cholesterol 38 mg/dL (40-60); LDL Cholesterol,Calculated 65 mg/dL (0-130); Osmolality,Calculated 290 (275-295); Potassium 4.5 mMol/L (3.4-5.1); Sodium 143 mMol/L (136-145); Total Protein 7.4 gm/dL (5.7-8.2); Triglycerides 116 mg/dL (30-150); eGFR > 60 See Note
== END | disposition home or self-care (01) ==
LOC: COPL 09:29
PROVIDERS: PCP Family Medicine; Referring Provider Physician Assistant; Visit Provider Physician Assistant
DX: I10 Essential (primary) hypertension (principal); E78.5 Hyperlipidemia, unspecified; R73.01 Impaired fasting glucose
CPT/HCPCS: 36415; 80053; 80061; 83036